=== PATIENT | female | born 1985 ===

== ENCOUNTER → 2020-12-18 13:21 | Outpatient (BNVA) | payer OTHER, SELFPAY | PROVIDERS: PCP Internal Medicine; Referring Provider Internal Medicine; Visit Provider Physician Assistant ==

== ENCOUNTER → 2020-12-24 07:34 | Outpatient (BNVA) | payer OTHER, SELFPAY | PROVIDERS: PCP Internal Medicine; Visit Provider Surgery ==

== ENCOUNTER 2020-12-30 | Outpatient (REF) | payer OTHER, SELFPAY ==
--- NOTE | ~2020-12-30 | XR_ITS ---
EXAMINATION: XR CHEST CLINICAL INFORMATION: Obesity COMPARISON: None TECHNIQUE: 2 views of the chest were obtained. FINDINGS: No significant abnormality is noted involving the heart, lungs, mediastinum, bony thorax or soft tissues. XR/XR chest 2V IMPRESSION: Unremarkable examination.
--- NOTE | 2020-12-30 08:34 | ECG_ITS ---
Test Reason : MOR OBS Blood Pressure : / mmHG Vent. Rate : 072 BPM Atrial Rate : 072 BPM P-R Int : 124 ms QRS Dur : 088 ms QT Int : 410 ms P-R-T Axes : 020 -03 -12 degrees QTc Int : 448 ms Normal sinus rhythm Normal ECG No previous ECGs available Referred By: Alonso Dooley Electronically Signed By:Carlos A Andrew
[2020-12-30 09:44] LABS: MANUAL DIFF FLAG NO
[2020-12-30 10:08] LABS: Basophils Percent Auto 0.4 % (0-2); Eosinophils Absolute Auto 0.2 X10*3/uL (0.0-0.4); Eosinophils Percent Auto 3.9 % (0-4); Hematocrit 40.1 % (37-47); Hemoglobin 13.2 g/dl (12.0-16.0); Lymphocytes Absolute Auto 1.8 X10*3/uL (1.2-4.9); Lymphocytes Percent Auto 35.6 % (20-40); Mean Corpuscular HGB Conc 32.9 g/dl (31.0-35.0); Mean Corpuscular Hemoglobin 26.7 pg (27.0-33.0); Mean Corpuscular Volume 81.2 fL (80-98); Monocytes Absolute Auto 0.4 X10*3/uL (0.1-1.2); Monocytes Percent Auto 8.3 % (2-11); Neutrophils Absolute Auto 2.6 X10*3/uL (2.0-8.3); Neutrophils Percent Auto 51.8 % (45-73); Platelet Count 194 X10*3/uL (160-400); Red Blood Count 4.94 X10*6/uL (4.20-5.50); Red Cell Distribution Width 12.7 % (11.0-16.0); White Blood Count 5.1 X10*3/uL (4.8-10.8)
[2020-12-30 10:15] LABS: Estimated Average Glucose 111 mg/dL; Hemoglobin A1c % 5.5 %
[2020-12-30 10:23] LABS: Alanine Aminotransferase 20 U/L (0-31); Albumin Level 4.1 g/dL (3.5-5.0); Alkaline Phosphatase 66 U/L (39-117); Anion Gap 14 (12-20); Aspartate Amino Transferase 24 U/L (5-31); Bilirubin Total 0.5 mg/dL (0.0-1.0); Blood Urea Nitrogen 16 mg/dL (9-16); C Reactive Protein 0.36 mg/dL (< or = 0.50); Calcium 9.4 mg/dL (8.4-10.2); Carbon Dioxide 26 mmol/L (22-29); Chloride 103 mmol/L (96-108); Cholesterol 162 mg/dL; Estimated Glomerular Filt Rate > 60; Glucose Random 99 mg/dL (60-115); HDL Cholesterol 47 mg/dL; Iron 76 mcg/dL (30-160); LDL Cholesterol Calculated 95 mg/dl; Percent Iron Saturation 20 % (15-50); Potassium 4.1 mmol/L (3.3-5.1); Sodium 139 mmol/L (135-145); Total Iron Binding Capacity 387 mcg/dL (228-428); Total Protein 7.1 g/dL (6.5-8.0); Triglycerides 104 mg/dL; Unsaturated Iron Binding 311 ug/dL
[2020-12-30 10:45] LABS: Ferritin 21 ng/mL (10-122); TSH reflex Free T4 1.74 uIU/mL (0.32-4.0); Vitamin D 25-OH Total 29.7 ng/mL (>30)
[2020-12-30 11:05] LABS: Folate 15.3 ng/mL (> or = 4.0); Vitamin B12 745 pg/mL (200-900)
[2020-12-31 09:41] LABS: Insulin Level Total 10.3 uIU/mL
[2020-12-31 13:51] LABS: Calcium (PTHI) 9.2 mg/dL (8.6-10.2); PTHI 48 pg/mL (14-64)
[2021-01-02 15:47] LABS: Zinc 71 mcg/dL (60-130)
[2021-01-04 12:17] LABS: Vitamin B1 7 nmol/L (8-30)
[2021-01-05 19:05] LABS: Vitamin A 42 mcg/dL (38-98)
[2021-02-17 15:31] VITALS: BMI 42.6
--- NOTE | 2021-02-20 08:59 | P.CONAN_ITS ---
HPI - Anesthesia Eval Consult details Narrative: 36yo F for ?Upper Endoscopy s/p gastric sleeve - [facility] Active Problems Active Problems: All Active Problems (Updated 01/14/21 @ 20:00 by Alonso sánchez MD) Vitamin B1 deficiency (Acute) H. pylori infection (Acute) Adjustment disorder, unspecified (Acute) Morbid obesity (Acute) Past Medical History Medical History (Updated 01/14/21 @ 20:00 by Alonso Dooley MD) Morbid obesity Family History Family History Mother No problems noted. Father Diabetes Sister No problems noted. Sister No problems noted. Sister No problems noted. Brother No problems noted. Son No problems noted. Son No problems noted. Daughter No problems noted. Surgical History Surgical History (Updated 12/24/20 @ 07:45 by Ha White Arnav) History of sleeve gastrectomy Social History Social History Alcohol intake: never Patient Tobacco Use Status: Never used Tobacco Meds Allergies Allergy/AdvReac Type Severity Reaction Status Date / Time Seasonal Allergies Allergy Severe Anaphylaxis Verified 12/24/20 13:50 Exam Exam Date and Time: February 20, 2021 0859 Height,Weight and Vital Signs: Height 5 ft 4.5 in Weight 114.419 kg Pertinent Lab Results Pertinent Lab Results: Laboratory Tests 12/30/20 12/30/20 12/30/20 08:52 08:52 08:52 WBC 5.1 RBC 4.94 Hgb 13.2 Hct 40.1 MCV 81.2 MCH 26.7 L MCHC 32.9 RDW 12.7 Plt Count 194 MPV 12.0 Immature Gran % (Auto) 0.0 Neut % (Auto) 51.8 Lymph % (Auto) 35.6 [place] % (Auto) 8.3 Eos % (Auto) 3.9 Baso % (Auto) 0.4 Lymph # (Auto) 1.8 [place] # (Auto) 0.4 Eos # (Auto) 0.2 Baso # (Auto) 0.0 Abs Immat Gran (auto) 0.00 Absolute Neuts (auto) 2.6 Absolute Nucleated RBC 0.000 Nucleated RBC % (auto) 0.0 Sodium 139 Potassium 4.1 Chloride 103 Carbon Dioxide 26 Anion Gap 14 BUN 16 Creatinine 0.88 Estim Creat Clear Calc TNP Estimated GFR > 60 Random Glucose 99 Estimat Average Glucose 111 Hemoglobin A1c % 5.5 Total Insulin Calcium 9.4 Iron 76 TIBC 387 % Saturation 20 Unsat Iron Binding 311 Ferritin 21 Total Bilirubin 0.5 AST 24 ALT 20 Alkaline Phosphatase 66 C-Reactive Protein 0.36 Total Protein 7.1 Albumin 4.1 Triglycerides 104 Cholesterol 162 LDL Cholesterol, Calc 95 HDL Cholesterol 47 Vitamin A Vitamin B1 Vitamin B12 25-OH Vitamin D Total 29.7 Folate TSH 1.74 PTH Intact Calcium (PTH Intact) Zinc 12/30/20 12/30/20 12/30/20 08:52 08:52 08:52 WBC RBC Hgb Hct MCV MCH MCHC RDW Plt Count MPV Immature Gran % (Auto) Neut % (Auto) Lymph % (Auto) [place] % (Auto) Eos % (Auto) Baso % (Auto) Lymph # (Auto) [place] # (Auto) Eos # (Auto) Baso # (Auto) Abs Immat Gran (auto) Absolute Neuts (auto) Absolute Nucleated RBC Nucleated RBC % (auto) Sodium Potassium Chloride Carbon Dioxide Anion Gap BUN Creatinine Estim Creat Clear Calc Estimated GFR Random Glucose Estimat Average Glucose Hemoglobin A1c % Total Insulin 10.3 Calcium Iron TIBC % Saturation Unsat Iron Binding Ferritin Total Bilirubin AST ALT Alkaline Phosphatase C-Reactive Protein Total Protein Albumin Triglycerides Cholesterol LDL Cholesterol, Calc HDL Cholesterol Vitamin A 42 Vitamin B1 7 L Vitamin B12 745 25-OH Vitamin D Total Folate 15.3 TSH PTH Intact 48 Calcium (PTH Intact) 9.2 Zinc 12/30/20 08:52 WBC RBC Hgb Hct MCV MCH MCHC RDW Plt Count MPV Immature Gran % (Auto) Neut % (Auto) Lymph % (Auto) [place] % (Auto) Eos % (Auto) Baso % (Auto) Lymph # (Auto) [place] # (Auto) Eos # (Auto) Baso # (Auto) Abs Immat Gran (auto) Absolute Neuts (auto) Absolute Nucleated RBC Nucleated RBC % (auto) Sodium Potassium Chloride Carbon Dioxide Anion Gap BUN Creatinine Estim Creat Clear Calc Estimated GFR Random Glucose Estimat Average Glucose Hemoglobin A1c % Total Insulin Calcium Iron TIBC % Saturation Unsat Iron Binding Ferritin Total Bilirubin AST ALT Alkaline Phosphatase C-Reactive Protein Total Protein Albumin Triglycerides Cholesterol LDL Cholesterol, Calc HDL Cholesterol Vitamin A Vitamin B1 Vitamin B12 25-OH Vitamin D Total Folate TSH PTH Intact Calcium (PTH Intact) Zinc 71 Narrative Narrative: EKG 12/2020 Vent. Rate : 072 BPM ? ? Atrial Rate : 072 BPM ?? P-R Int : 124 ms? QRS Dur : 088 ms ? ? QT Int : 410 ms ? ? ? P-R-T Axes : 020 -03 -12 degrees ?? QTc Int : 448 ms ? Normal sinus rhythm Normal ECG No previous ECGs available Assessment and Plan Assessment Anesthesia Assessment: Chart Reviewed
== END 2020-12-30 00:01 | disposition home or self-care (01) ==
LOC: HO.LAB
PROVIDERS: PCP Internal Medicine; Visit Provider Surgery
DX: E66.01 Morbid (severe) obesity due to excess calories (principal); Z98.84 Bariatric surgery status
CPT/HCPCS: 36415; 80053; 80061; 82306; 82607; 82728; 82746; 83036; 83525; 83540; 83970; 84425; 84443; 84590; 84630; 85025; 86140

== ENCOUNTER 2020-12-30 09:10 | Outpatient (REF) | payer OTHER, SELFPAY ==
[2020-12-31 13:51] LABS: H Pylori Breath Test DETECTED (NOT DETECTED)
== END 2020-12-30 09:11 | disposition home or self-care (01) ==
LOC: HO.LNP 09:10
PROVIDERS: Surgery; PCP Internal Medicine; Referring Provider Internal Medicine; Visit Provider Physician Assistant
DX: E66.01 Morbid (severe) obesity due to excess calories (principal)
CPT/HCPCS: 71046; 83013; 93005

== ENCOUNTER → 2021-01-16 07:04 | Outpatient (BNVA) | payer OTHER, SELFPAY | PROVIDERS: PCP Internal Medicine; Visit Provider Surgery ==

== ENCOUNTER → 2021-01-23 08:32 | Outpatient (BNVA) | payer OTHER, SELFPAY | PROVIDERS: PCP Internal Medicine; Visit Provider Dietitian, Registered ==

== ENCOUNTER 2022-03-01 16:04 | Outpatient (REF) | payer OTHER, SELFPAY ==
[2022-03-02 14:11] LABS: H Pylori Breath Test Negative (Negative)
== END 2022-03-01 16:05 | disposition home or self-care (01) ==
LOC: HO.LNP 16:04
PROVIDERS: Visit Provider Physician Assistant
DX: Z01.818 Encounter for other preprocedural examination (principal); E66.01 Morbid (severe) obesity due to excess calories; Z90.3 Acquired absence of stomach [part of]
CPT/HCPCS: 83013

== ENCOUNTER 2022-03-13 07:17 | Outpatient (REF) | payer OTHER, SELFPAY ==
[2022-03-13 07:46] LABS: MANUAL DIFF FLAG NO
[2022-03-13 08:03] LABS: Basophils Percent Auto 0.5 % (0-2); Eosinophils Absolute Auto 0.7 X10*3/uL (0.0-0.4); Eosinophils Percent Auto 11.2 % (0-4); Hematocrit 40.3 % (37.0-47.0); Hemoglobin 13.3 g/dl (12.0-16.0); Imm Gran Abs Auto 0.01 X10*3/uL (0.00-0.03); Imm Gran Pct Auto 0.2 % (0.0-0.4); Lymphocytes Absolute Auto 1.9 X10*3/uL (1.2-4.9); Lymphocytes Percent Auto 29.6 % (20-40); Mean Corpuscular Hemoglobin 26.4 pg (27.0-33.0); Mean Platelet Volume 12.1 fL (9.4-12.3); Monocytes Absolute Auto 0.5 X10*3/uL (0.1-1.2); Neutrophils Absolute Auto 3.4 x10*3/uL (2.0-8.3); Neutrophils Percent Auto 51.5 % (45-73); Platelet Count 199 X10*3/uL (160-400); Red Blood Count 5.04 X10*6/uL (4.20-5.50); Red Cell Distribution Width 13.2 % (11.0-16.0); White Blood Count 6.5 X10*3/uL (4.8-10.8)
[2022-03-13 08:06] LABS: Estimated Average Glucose 117 mg/dL; Hemoglobin A1c % 5.7 %
[2022-03-13 08:41] LABS: Alanine Aminotransferase 33 U/L (0-31); Albumin Level 4.1 g/dL (3.5-5.0); Alkaline Phosphatase 57 U/L (39-117); Anion Gap 15 (12-20); Aspartate Amino Transferase 31 U/L (5-31); Bilirubin Total 0.3 mg/dL (0.0-1.0); Blood Urea Nitrogen 14 mg/dL (9-16); Calcium 8.8 mg/dL (8.4-10.2); Carbon Dioxide 23 mmol/L (22-29); Chloride 105 mmol/L (96-108); Cholesterol 151 mg/dL; Estimated Glomerular Filt Rate > 60; Glucose Random 112 mg/dL (60-115); HDL Cholesterol 37 mg/dL; LDL Cholesterol Calculated 94 mg/dl; Potassium 3.8 mmol/L (3.3-5.1); Sodium 139 mmol/L (135-145); Total Protein 6.9 g/dL (6.5-8.0); Triglycerides 104 mg/dL
[2022-03-13 08:52] LABS: C Reactive Protein 0.24 mg/dL (< or = 0.50); Iron 73 mcg/dL (30-160); Percent Iron Saturation 20 % (15-50); Total Iron Binding Capacity 359 mcg/dL (228-428); Unsaturated Iron Binding 286 ug/dL
[2022-03-13 10:05] LABS: Ferritin 32 ng/mL (10-122); TSH reflex Free T4 1.85 uIU/mL (0.32-4.0); Vitamin D 25-OH Total 28.3 ng/mL (>30)
[2022-03-13 11:06] LABS: Insulin 14 uU/mL (2-29)
[2022-03-15 05:48] LABS: Folate 12.1 ng/mL (> or = 4.0); Vitamin B12 713 pg/mL (200-900)
[2022-03-15 17:26] LABS: Calcium (PTHI) 8.9 mg/dL (8.6-10.2); PTHI 91 pg/mL (16-77)
[2022-03-16 23:47] LABS: Zinc 85 mcg/dL (60-130)
[2022-03-17 15:07] LABS: Vitamin B1 8 nmol/L (8-30)
[2022-03-17 20:32] LABS: Vitamin A 38 mcg/dL (38-98)
== END 2022-03-13 07:18 | disposition home or self-care (01) ==
LOC: HO.XRAY 07:17
PROVIDERS: Visit Provider Physician Assistant
DX: Z01.818 Encounter for other preprocedural examination (principal); E66.01 Morbid (severe) obesity due to excess calories; Z90.3 Acquired absence of stomach [part of]
CPT/HCPCS: 36415; 80053; 80061; 82306; 82607; 82728; 82746; 83036; 83525; 83540; 83970; 84425; 84443; 84590; 84630; 85025; 86140

== ENCOUNTER → 2022-03-24 09:54 | Outpatient (BNVA) | payer OTHER, SELFPAY | PROVIDERS: PCP Physician Assistant Medical; Visit Provider Dietitian, Registered | DX: E66.01 Morbid (severe) obesity due to excess calories (principal) | CPT/HCPCS: 97802 ==

== ENCOUNTER → 2022-03-30 10:00 | Outpatient (BNVA) | payer OTHER, SELFPAY | PROVIDERS: PCP Physician Assistant Medical; Visit Provider Counselor Mental Health | DX: F43.20 Adjustment disorder, unspecified (principal); E66.01 Morbid (severe) obesity due to excess calories | CPT/HCPCS: 90791 ==

== ENCOUNTER 2022-04-19 08:19 | Outpatient (REF) | payer OTHER, SELFPAY ==
--- NOTE | ~2022-04-19 | FL_ITS ---
EXAMINATION: XR FLUOROSCOPY UPPER GI CLINICAL INFORMATION: Morbid (severe) obesity due to excess calories COMPARISON: None TECHNIQUE: Effervescent granules were not utilized because of the patient's history of prior sleeve gastrectomy. Multiple fluoroscopic spot images were obtained as the patient swallowed thick and thin barium in upright and prone positions. FINDINGS: The patient initiated swallowing normally. The cervical esophagus is normal. Normal esophageal peristalsis. No fixed esophageal mucosal abnormality to suggest stricture or mass. No hiatal hernia. No reflux seen spontaneously or elicited with Valsalva maneuver. Expected postoperative appearance of the stomach status post sleeve gastrectomy. There is prompt emptying of the stomach with normal appearance and distensibility of the duodenal bulb and sweep. FLUOROSCOPY TIME: 2.5 minutes DOSE AREA PRODUCT: 43.503 Gy-cm2 (cai-centimeter squared) FL/FL upper GI w air IMPRESSION: Expected postoperative appearance status post sleeve gastrectomy.
--- NOTE | ~2022-04-19 | US_ITS ---
EXAMINATION: US COMPLETE ABDOMEN WITH LIVER ELASTOGRAPHY CLINICAL INFORMATION: Obesity COMPARISON: None. TECHNIQUE: Real-time imaging of the abdominal viscera. Noninvasive ultrasound liver fibrosis assessment is performed using Tricia ElastPQ point quantification shear wave elastography (2D-SWE) with a C5-2 MHz transducer. Multiple elastography samples are obtained. FINDINGS: PANCREAS: Normal. ABDOMINAL AORTA: The proximal, middle, and distal aortic segments are normal in caliber. INFERIOR VENA CAVA: Visualized portions are normal. LIVER: Liver echotexture is increased. The liver demonstrates normal size, and contour. No focal lesion or intrahepatic biliary duct dilatation. The right lobe measures 14.6 cm in length. The left lobe measures 9.7 cm in length. Portal flow is normal/hepatopedal Shear wave liver elastography median stiffness is 1.6 m/s (reference: normal median stiffness is 1.3 m/s or less). IQR/median stiffness to assess sampling precision is 0.09 (reference: good quality data set is IQR/median stiffness of 0.15 or less). GALLBLADDER: Normal. The gallbladder is physiologically distended without evidence of stones, sludge, polyps, wall thickening or pericholecystic fluid. COMMON BILE DUCT: Normal in caliber measuring 0.2 cm in diameter. RIGHT KIDNEY: Normal. No hydronephrosis. No renal calculi or focal parenchymal lesions. The kidney measures 11.6 cm in maximum dimension. LEFT KIDNEY: Normal. No hydronephrosis. No renal calculi or focal parenchymal lesions. The kidney measures 12.6 cm in maximum dimension. SPLEEN: Normal. The spleen measures 11.2 cm in maximum dimension. FREE FLUID: None. US/US abdomen comp w elastography IMPRESSION: 1. Impression: Echogenic liver probably representing fatty infiltration. 2. Liver elastography: Adequate liver sampling. In the absence of other known clinical signs, rules out compensated advanced chronic liver disease. REFERENCE: Society of Radiologists in Ultrasound Liver Stiffness Thresholds (2020): LIVER STIFFNESS THRESHOLDS: *Liver Stiffness equal or less than 1.3 m/s: High probability of being normal. *Liver Stiffness less than 1.7 m/s: In the absence of other known clinical signs, rules out compensated advanced chronic liver disease. *Liver Stiffness 1.7-2.1 m/s: Suggestive of compensated advanced chronic liver disease but need further test for confirmation. *Liver Stiffness over 2.1 m/s: Rules in compensated advanced chronic liver disease. *Liver Stiffness over 2.4 m/s: Suggestive of clinically significant portal hypertension. QUALITY OF DATA SET: *IQR/Median value equal or less than 0.15 implies a quality data set. *IQR/Median value over 0.15 implies a poor quality data set. SIGNIFICANT CHANGE FROM PRIOR EXAM: Significant change if liver stiffness measurement is 10% or greater from prior exam. OTHER CONSIDERATIONS: The stage of liver fibrosis may be overestimated in the setting of acute hepatitis, liver inflammation, elevated liver function tests, hepatic vascular congestion, obstructive cholestasis, non-fasting state, and infiltrative diseases such as amyloidosis and lymphoma. In some patients with NAFLD, the liver stiffness thresholds for compensated advanced chronic liver disease may be lower. In causes other than viral hepatitis and NAFLD, liver stiffness thresholds are not well established.
== END 2022-04-19 08:20 | disposition home or self-care (01) ==
LOC: HO.US 08:19
PROVIDERS: Visit Provider Physician Assistant
DX: Z01.818 Encounter for other preprocedural examination (principal); E66.01 Morbid (severe) obesity due to excess calories; K21.9 Gastro-esophageal reflux disease without esophagitis; Z90.3 Acquired absence of stomach [part of]
CPT/HCPCS: 74246; 76705; 76981

== ENCOUNTER → 2022-04-29 10:11 | Outpatient (BNVA) | payer OTHER, SELFPAY | PROVIDERS: PCP Physician Assistant Medical; Visit Provider Dietitian, Registered | DX: E66.01 Morbid (severe) obesity due to excess calories (principal) | CPT/HCPCS: 97803 ==

== ENCOUNTER → 2022-06-25 09:30 | Outpatient (BNVA) | payer OTHER, SELFPAY | PROVIDERS: PCP Physician Assistant Medical; Visit Provider Physician Assistant | DX: E66.01 Morbid (severe) obesity due to excess calories (principal) ==

== ENCOUNTER → 2022-07-06 07:59 | Outpatient (REF) | payer OTHER, SELFPAY ==
--- NOTE | ~2022-07-06 | XR_ITS ---
EXAMINATION: XR chest 2V CLINICAL INFORMATION: Reason for Exam E66.01 - Morbid (severe) obesity due to excess calories COMPARISON: 12/30/2020 TECHNIQUE: 2 views of the chest FINDINGS: Clear lungs. No pneumothorax or pleural effusion. Normal cardiomediastinal silhouette. XR/XR chest 2V Impression: * Clear lungs.
--- NOTE | 2022-07-06 08:05 | ECG_ITS ---
Test Reason : obesity Blood Pressure : / mmHG Vent. Rate : 071 BPM Atrial Rate : 071 BPM P-R Int : 142 ms QRS Dur : 090 ms QT Int : 416 ms P-R-T Axes : 009 -02 -07 degrees QTc Int : 452 ms Normal sinus rhythm Minimal voltage criteria for LVH, may be normal variant ( [place] product ) Septal infarct , age undetermined Abnormal ECG When compared with ECG of 30-DEC-2020 08:40, Septal infarct is now Present Referred By: Beronica Lucio Electronically Signed By:BASIA LIRA MD
== END ==
LOC: HO.CARD 07:59
PROVIDERS: PCP Physician Assistant Medical; Visit Provider Physician Assistant
DX: Z01.818 Encounter for other preprocedural examination (principal); E66.01 Morbid (severe) obesity due to excess calories; Z90.3 Acquired absence of stomach [part of]
CPT/HCPCS: 71046; 93005

== ENCOUNTER → 2022-07-09 11:22 | Outpatient (BNVA) | payer OTHER, SELFPAY | PROVIDERS: PCP Physician Assistant Medical; Visit Provider Physician Assistant | DX: E66.01 Morbid (severe) obesity due to excess calories (principal) ==

== ENCOUNTER → 2022-07-16 10:23 | Outpatient (REF) | payer OTHER, SELFPAY ==
--- NOTE | 2022-07-16 10:26 | CA_ITS ---
Transthoracic Echocardiogram Patient (Last, First, Middle): Roseline Rock, Gender: Female Date of : 1985 Age: 37 Procedure Date: 07/16/2022 Procedure Type: Transthoracic Echocardiogram Location: OP Height: 162.56 cm Weight: 113.85 kg BSA: 2.15 m2 Heart Rate: bpm BP: 124 / 80 mmHg System Trainer: CLARISSE Referring MD: Beronica Lucio PA-C Symptoms: R94.31 - Abnormal electrocardiogram [ECG] [EKG] R06.02 SOB Study Quality: Fair w CONTRAST ECG Rhythm: Sinus Conclusions: - The left ventricular systolic function is normal. The calculated ejection fraction is 57% by biplane method. - No obvious valvular pathology seen on this study. Findings Left Ventricle Normal left ventricular cavity size. There is normal left ventricular wall thickness. The left ventricular systolic function is normal. The calculated ejection fraction is 57% by biplane method. There is no evidence of regional wall motion abnormalities. Diastolic function is normal for age. Right Ventricle Normal right ventricular cavity size and systolic function. Atria The left atrium is normal in size. The right atrium is normal in size. Aortic Valve The aortic valve was not well visualized. There is no aortic valve stenosis. There is no aortic valve regurgitation. Mitral Valve The mitral valve appears normal. There is trace mitral valve regurgitation. There is no mitral valve stenosis. Pulmonic Valve The pulmonic valve is likely normal. Tricuspid Valve Normal tricuspid valve structure. There is trace tricuspid valve regurgitation. There is no evidence of pulmonary hypertension. Great Vessels The asc aorta is normal in size. Venous The inferior vena cava is normal in size and collapses greater than 50% with inspiration. Pericardium/Pleural There is no evidence of pericardial effusion. Prior Study Comparison No prior study available for comparison. Recommendations, Care & Conclusions No obvious valvular pathology seen on this study. Measurements 2D Linear Measurements IVSd: 0.93 0.6-0.9/0.6-1.0 cm LVIDd: 5.43 3.9-5.3/4.2-5.9 cm LVIDd Index: 2.53 2.4-3.2/2.2-3.1 cm/m2 LVIDs: 3.38 2.0-3.6 cm LVPWd: 0.88 0.7-1.1 cm Ao Root: 2.60 2.1-3.5 cm LA Diam: 4.00 2.7-3.8/3.0-4.0 cm LAIDs Index: 1.86 1.5-2.3 cm/m2 LV Mass: 227.52 67-162/88-224 g LV Mass Index: 105.82 43-95/49-115 g/m2 LVOT Diam: 2.20 3.0+(-)1.3 cm 2D Systolic Function EF 4C: 59.70 >55% EF 2C: 56.50 >55% EF BiP: 57.00 >55% Mitral Valve MV Pk E: 0.95 MV PK A: 0.73 MV Decel Time: 227.00 E/A: 1.30 E'Lateral: 14.60 E'Medial: 10.10 E/E' Med: 9.40 E/E' Lat: 6.50 PHT: 66.00 MVA PHT: 3.33 Decel Brooke: 4.18 Aortic Valve AoV Pk Hunter: 1.55 AoV Mn Hunter: 1.06 AoV VTI: 0.39 AoV Pk Grad: 10.00 Aov Mn Grad: 5.00 PRAVEEN Cont.VTI: 2.61 LVOT LVOT Pk Hunter: 1.03 LVOT Mn Hunter: 0.71 LVOT VTI: 0.27 LVOT Pk Grad: 4.00 LVOT Mn Grad: 2.00 LVOT Diam: 2.20 LVOT Area: 3.80 Diastolic Function MV Pk E: 0.95 MV Pk A: 0.73 E/A: 1.30 E'Medial: 10.10 E/E' Med: 9.40 E' Laterial: 14.60 E/E' Lat: 6.50 Right Ventricle TAPSE (mm): 25.00 Tricuspid Valve TR Pk Hunter: 2.28 TR Pk Grad: 21.00 RA Press: 3.00 RVSP: 24.00 Great Vessels Aorta Ao Root-2D: 2.60 2.0-3.7 cm Ao Asc: 2.60 2.1-3.4 cm Pulmonary Valve PV Pk Hunter: 1.03 Peak PV Grad: 4.00 Updated in Other Vendor System with Status of Final Rom Escamilla MD electronically signed on 07/17/2022 12:43:35 PM with status of Final
== END ==
LOC: HO.CARD 10:23
PROVIDERS: PCP Physician Assistant Medical; Visit Provider Physician Assistant
DX: Z01.818 Encounter for other preprocedural examination (principal); E66.01 Morbid (severe) obesity due to excess calories; R94.31 Abnormal electrocardiogram [ECG] [EKG]
CPT/HCPCS: 93306; Q9957

== ENCOUNTER → 2022-07-20 09:21 | Outpatient (REF) | payer OTHER, SELFPAY ==
--- NOTE | ~2022-07-20 | NM_ITS ---
Exercise Myocardial perfusion study Indication: Abnormal EKG to evaluate for myocardial ischemia Technique: The patient was brought in for an exercise perfusion study on 07/20/2022. Patient performed exercise as per Bradford protocol and was injected 40 mCi of sestamibi was given intravenously one target HR was achieved. Images were obtained using the SPECT gamma camera interlaced with the gating device. Images were obtained in supine position. Resting perfusion study was performed on 08/05/2022. Patient was administered 40 mCi of sestamibi intravenously at rest. Images were then obtained in supine position. Images obtained with and without CT attenuation. Total DLP 156 mGy-cm. Images were processed with the software and compared side to side in short axis, horizontal long axis and vertical long axis views. Findings: The stress perfusion study showed non attenuated images show minimal thinning and reduced uptake in the distal anterolateral and distal anterior as well as basal and mid anterior wall of the LV myocardium. Attenuation corrected images show mildly reduced uptake in the basal and mid anterior and moderately reduced uptake in the distal anterior, distal septum and mildly reduced uptake in the septum of the LV myocardium.. The gated study shows normal LV systolic function with calculated LVEF of 64%. LV cavity is normal in size. The gated study shows normal systolic wall thickening and contraction of all segments. There is no transient ischemic dilation. Resting study shows non attenuated images show improvement in the uptake in the inferior and inferoseptal wall as well as on attenuated corrected images there is improvement in the distal septum, distal anterior and anteroseptal wall of the LV myocardium as well as the apex. Gating at rest reveals normal systolic wall motion with ejection fraction at 59%. The findings are consistent with equivocal for septal and distal anterior ischemia. Shifting breast attenuation cannot be. NM/NM cardiolite stress test Impression: 1. Possible septal and distal anterior ischemia 2. Gated LVEF is 64% 3. Transient ischemic dilatation not present Stress EKG is negative for ischemia
--- NOTE | 2022-07-20 09:23 | CA_ITS ---
Acquisition Time: 2022-07-20 10:09:09 Total Exercise Time: 00:08:58 Test Indications: SOB Medications: NONE Protocol: JIM Max HR: 160 BPM 87% of Pred: 183 BPM Max BP: 140/070 mmHG Max Work Load: 10.1 METS Exercise stress test with exercise 8 min 58 sec of Jim protocol achieving 85% MPHR, 10.1 METs, without anginal symptoms, without arrythmia, with normtensive response to exercise, without EKG changes meeting criteria for ischemia. Nuclear images pending. Test reviewed with Dr Andrew. Referred By: Beronica Lucio Overread By: ALEX SELLERS
== END ==
LOC: HO.CARD 09:21
PROVIDERS: PCP Physician Assistant Medical; Visit Provider Physician Assistant
DX: Z01.818 Encounter for other preprocedural examination (principal); E66.01 Morbid (severe) obesity due to excess calories; R94.31 Abnormal electrocardiogram [ECG] [EKG]
CPT/HCPCS: 78452; 93017; A9500

== ENCOUNTER → 2022-07-29 11:00 | Outpatient (BNVA) | payer OTHER, SELFPAY | PROVIDERS: PCP Physician Assistant Medical; Visit Provider Physician Assistant | DX: E66.01 Morbid (severe) obesity due to excess calories (principal); Z90.3 Acquired absence of stomach [part of]; R94.31 Abnormal electrocardiogram [ECG] [EKG] ==

== ENCOUNTER → 2022-08-17 14:15 | Outpatient (BNVA) | payer OTHER, MEDICAID, SELFPAY | PROVIDERS: PCP Physician Assistant Medical; Referring Provider Physician Assistant Medical; Visit Provider Internal Medicine | DX: Z13.89 Encounter for screening for other disorder (principal) ==

== ENCOUNTER → 2022-08-20 14:00 | Outpatient (BNVA) | payer OTHER, MEDICAID, SELFPAY | PROVIDERS: PCP Physician Assistant Medical; Visit Provider Physician Assistant | DX: Z13.89 Encounter for screening for other disorder (principal) ==

== ENCOUNTER → 2022-09-06 08:03 | Outpatient (BNVA) | payer OTHER, MEDICAID, SELFPAY | PROVIDERS: PCP Physician Assistant Medical; Visit Provider Surgery | DX: Z13.89 Encounter for screening for other disorder (principal) ==

== ENCOUNTER → 2022-09-13 11:06 | Outpatient (BNVA) | payer OTHER, MEDICAID, SELFPAY | PROVIDERS: PCP Physician Assistant Medical; Visit Provider Surgery | DX: Z13.89 Encounter for screening for other disorder (principal) ==

== ENCOUNTER 2022-09-14 07:20 | Outpatient (REF) | payer OTHER, MEDICAID, SELFPAY ==
[2022-09-14 07:33] LABS: MANUAL DIFF FLAG NO
[2022-09-14 08:06] LABS: Basophils Percent Auto 0.7 % (0-2); Eosinophils Absolute Auto 0.4 X10*3/uL (0.0-0.4); Hematocrit 38.6 % (37.0-47.0); Hemoglobin 12.4 g/dl (12.0-16.0); Imm Gran Abs Auto 0.01 X10*3/uL (0.00-0.03); Imm Gran Pct Auto 0.2 % (0.0-0.4); Lymphocytes Absolute Auto 2.1 X10*3/uL (1.2-4.9); Lymphocytes Percent Auto 33.5 % (20-40); Mean Corpuscular HGB Conc 32.1 g/dl (31.0-35.0); Mean Corpuscular Hemoglobin 26.4 pg (27.0-33.0); Mean Corpuscular Volume 82.1 fL (80.0-98.0); Mean Platelet Volume 12.7 fL (9.4-12.3); Monocytes Absolute Auto 0.5 X10*3/uL (0.1-1.2); Monocytes Percent Auto 7.6 % (2-11); Neutrophils Absolute Auto 3.1 x10*3/uL (2.0-8.3); Platelet Count 178 X10*3/uL (160-400); Red Cell Distribution Width 13.6 % (11.0-16.0); White Blood Count 6.2 X10*3/uL (4.8-10.8)
[2022-09-14 08:29] LABS: Prothrombin Time 11.2 SEC (10.0-13.1)
[2022-09-14 08:32] LABS: Partial Thromboplastin Time 28.3 SEC (26.0-36.4)
[2022-09-14 08:39] LABS: Estimated Average Glucose 111 mg/dL; Hemoglobin A1c % 5.5 %
[2022-09-14 09:45] LABS: Alanine Aminotransferase 15 U/L (0-31); Albumin Level 3.9 g/dL (3.5-5.0); Alkaline Phosphatase 54 U/L (39-117); Anion Gap 12 (12-20); Aspartate Amino Transferase 25 U/L (5-31); Bilirubin Total 0.4 mg/dL (0.0-1.0); Blood Urea Nitrogen 17 mg/dL (9-16); C Reactive Protein 0.14 mg/dL (< or = 0.50); Calcium 8.8 mg/dL (8.4-10.2); Carbon Dioxide 25 mmol/L (22-29); Chloride 109 mmol/L (96-108); Cholesterol 152 mg/dL; Estimated Glomerular Filt Rate > 60; Glucose Random 89 mg/dL (60-115); HDL Cholesterol 49 mg/dL; LDL Cholesterol Calculated 85 mg/dl; Sodium 142 mmol/L (135-145); Total Protein 6.4 g/dL (6.5-8.0); Triglycerides 92 mg/dL
[2022-09-14 09:50] LABS: Insulin 7 uU/mL (2-29); TSH reflex Free T4 3.17 uIU/mL (0.32-4.0)
== END 2022-09-14 07:21 | disposition home or self-care (01) ==
LOC: HO.LAB 07:20
PROVIDERS: PCP Physician Assistant Medical; Visit Provider Surgery
DX: E66.01 Morbid (severe) obesity due to excess calories (principal)
CPT/HCPCS: 36415; 80053; 80061; 83036; 83525; 84443; 85025; 85610; 85730; 86140

== ENCOUNTER → 2022-09-17 12:55 | Outpatient (BNVA) | payer OTHER, MEDICAID, SELFPAY | PROVIDERS: PCP Physician Assistant Medical; Visit Provider Surgery | DX: Z13.89 Encounter for screening for other disorder (principal) ==

== ENCOUNTER 2022-09-21 07:15 | Inpatient (IN) | payer OTHER, SELFPAY ==
[2022-09-16 11:28] VITALS: BMI 45.7
--- NOTE | 2022-09-17 17:26 | P.HPSUR_ITS ---
Pre-Procedural Eval Section A Date of Service: 09/17/22 The patient is an INPATIENT: Yes The History & Physical has been completed within 30 days and I have reviewed it.: Yes Section B Chief Complaint: Morbid (severe) obesity due to excess calories Relevant Family History (Specify if Yes): No Relevant Social History: None Present Medications: None Medical History: No relevant PMH History of Previous Operations: Relevant previous surgery/procedure and date(s) (laparoscopic sleeve gastrectomy) Allergies: Allergies Allergy/AdvReac Type Severity Reaction Status Date / Time Seasonal Allergies Allergy Severe Anaphylaxis Verified 09/13/22 13:39 Review of Systems Sugical H&P ROS: Negative: Constitution, Cardiovascular, Respiratory, Neurological, Psychiatric, Hem-Onc, Allergic/Immunologic, Gastrointestinal, Gen itourinary, Musculoskeletal, Integumentary, Endocrine and Eyes/Ears/Nose/Throat Exam Surgical H&P Exam: Normal: HEENT, Normal: Heart, Normal: Lungs, Normal: Extremities, Normal: Abdomen, Normal: Skin and Normal: Neurological Plan Diagnosis/Plan: Unchanged I have reviewed the history and physical and performed a pertinent physical examination on my patient. No changes have occurred unless specified. Time Spent With Patient Time: Total time managing care of this patient today ____ minutes.
[2022-09-20 12:57] LABS: COVID-19 Test Negative (Negative); IDNOW Serial# 55D5AD1C
[2022-09-21] VITALS (10 sets, daily range): BP systolic 117–148; BP diastolic 64–86; PULSE 61–75; RESP 11–169; TEMP 36.2–36.4; O2SAT 93–100
--- OUTSIDE RECORDS SUMMARY | 2022-09-21 07:18 | XMS_ITS | Continuity of Care Document ---
Author Name Unknown Organization [facility] ter Address [address] [place] [id number]- Care Team Providers Care Carbonation Equipment Tender Name Role Phone Christoph Case MD Primary Care Physician Encounter [facility] [place](s): 09/01/20 - 09/17/[address] [id number] Discharge Disposition: A-D/C Home Attending Physician: Amanda Weiss MD Admitting Physician: Amanda Weiss MD Referring Physician: Amanda Weiss MD Allergies, Adverse Reactions, Alerts Substance Reaction Severity Status Other Environmental Allergy 1 Active Avocado Active 1Seasonal allergies Immunizations Given and Recorded Vaccine Date Status Refusal Reason Influenza Virus Vaccine (oldterm) 04/27/20 Recorde d Medications aspirin 81 mg oral delayed release tablet 162 mg, 2, tablet, By Mouth, Daily, # 30 tablet, Refills 0, Maintenance, 08/23/20 8:21:00 EST, Partial fill upon patient request if the prescription is for a schedule II opioid drug. Start Date: 08/23/20 Status: Ordered Multivitamins with Folic Acid 1 mg oral tablet 1 tablet, By Mouth, Daily, # 90 tablet, 3 Refills, Maintenance, 03/07/20 16:36:00 EDT, [id number], 1 tablet By Mouth Daily,x90 days, 167, cm, 03/05/20 9:38:00 EDT, Height, 116.1, kg, 05/15/1912:13:00 EST, Dry Weight Start Date: 03/07/20 Stop Date: 03/02/21 Status: Ordered Problem List Condition Effective Dates Status Health Status Inform ant Back ache(Confirmed) Active Cervical incompetence(Confirmed) 1 12/12/17 Active Chest pain due to GERD(Confirmed) Active affected by growth restriction(Confirmed) Active Morbid obesity(Confirmed) Active Visit for preventive health examination(Confirmed) Active Polycystic ovarian syndrome(Confirmed) Active Sleep apnea(Confirmed) Active 1Problem added by Discern Expert Vital Signs Most recent to oldest [Reference Range]: 1 2 3 Height 163 cm (09/07/20 11:04 PM) 163 cm (09/01/20 4:35 AM) 163 cm (09/01/20 3:03 AM) Weight 114.7 kg (09/01/20 4:39 AM) 116.8 kg (09/01/20 4:35 AM) 114.4 kg (09/01/20 3:03 AM) Oxygen Saturation [94-100 %] 99 % (09/17/20 8:53 AM) 98 % (09/15/20 10:45 PM) 98 % (09/15/20 10:30 PM) Pulse Rate [55-90 bpm] 95 bpm *H* (09/15/20 9:11 AM) 78 bpm (09/15/20 6:36 AM) 79 bpm (09/14/20 8:33 AM) Body Mass Index [18.5-24.99] 43.96 *>HHI* (09/01/20 4:35 AM) 43.06 *>HHI* (09/01/20 3:03 AM) Blood Pressure [90-138/55-84 mm Hg] 122/67mm Hg (09/17/20 8:53 AM) 114/67mm Hg (09/17/20 6:42 AM) 123/68mm Hg (09/16/20 8:29 PM) Respiratory Rate [16-30 br/min] 18 br/min (09/17/20 8:53 AM) 18 br/min (09/16/20 6:18 PM) 18 br/min (09/16/20 8:50 AM) Temperature [96.8-100.4 DegF] 98 DegF (09/17/20 8:53 AM) 97.5 DegF (09/16/20 8:29 PM) 98.6 DegF (09/16/20 8:50 AM) Mode of Delivery (Oxygen) Room air (09/15/20 6:52 PM) Room air (09/15/20 3:49 PM) Room air (09/15/20 9:11 AM) Blood pressure sites Arm, right (09/15/20 6:52 PM) Arm, right (09/15/20 9:11 AM) Arm, left (09/14/20 10:49 PM) Temperature Route Oral (09/17/20 8:53 AM) Oral (09/16/20 8:29 PM) Oral (09/15/20 9:30 PM) Dry Weight 114.7 kg (09/01/20 4:39 AM) 116.8 kg (09/01/20 4:35 AM) Weight Obtained Via Standing scale (09/01/20 4:39 AM) Standing scale (09/01/20 3:03 AM) Dry Weight Obtained Via Standing scale (09/01/20 4:39 AM) Social History Social History Type Response Smoking Status Never smoker; Tobacc o user in household: No entered on: 10/23/14 Sex
--- OUTSIDE RECORDS SUMMARY | 2022-09-21 07:18 | XMS_ITS | Continuity of Care Document ---
Author Name Unknown Organization [facility] Address [address] [place] [id number]- Care Team Providers Care Nurses Assistant Name Role Phone Manpreet LOUIS, Christoph Morillo Primary Care Physician Encounter [facility] [place] Date(s): 10/29/20 - 11/28/[address] [id number]- Attending Physician: Bernard Bailey Admitting Physician: Bernard Bailey Referring Physician: Bernard Bailey Allergies, Adverse Reactions, Alerts Substance Reaction Severity [...] apnea(Confirmed) Active 1Problem added by Discern Expert Social History Social History Type Response Smoking Status Never smoker; Tobacc o user in household: No entered on: 10/23/14 Sex
--- OUTSIDE RECORDS SUMMARY | 2022-09-21 07:18 | XMS_ITS | Continuity of Care Document ---
Author Name Unknown Organization [facility] ter Address [address] [place] [phone]- Care Team Providers Care Brand Recorder Name Role Phone Manpreet LOUIS, Christoph Morillo Primary Care Physician Encounter [facility] Date(s): 04/26/20 - 04/26/[address] [address] Discharge Disposition: A-D/C Home Attending Physician: Gris Holman MD Admitting Physician: Gris Holman MD Referring Physician: Gris Holman MD Allergies, Adverse Reactions, Alerts Substance Reaction Severity Status Other Environmental Allergy 1 Active Avocado Active 1Seasonal allergies Medications 27 g 1/2 inch needle 27 g 1/2 inch needle, See Instructions, # 20 each, Refills 1, Tot. Refills 1, Maintenance, To use to adminsiter Menopur, 03/17/20 13:58:00 EDT, Compound, 167, cm, 03/05/20 9:38:00 EDT, Height, 116.1,kg, 05/15/19 12:13:00 EST, Dry Weight Start Date: 03/17/20 Status: Ordered 3 ml syringe with 22 g x 11/2 inch needle 3 ml syringe with 22 g x 11/2 inch needle, See Instructions, # 30 each, Refills 5, Tot. Refills 5, Maintenance, To use to mix & draw up Menopur., 03/17/20 13:57:00 EDT, Compound, 167, cm, 03/05/20 9:38:00 EDT, Height, 116.1, kg, 05/15/19 12:13:00 EST,... Start Date: 03/17/20 Status: Ordered albuterol 0.083% inhalation solution 3 mL = 2.5 mg, Inhalation, Every 6 hours, PRN Wheezing/Shortness of Breath, 0 Refills, Maintenance Start Date: 03/30/13 Status: Ordered Apri 0.15 mg-0.03 mg oral tablet 1 tablet, By Mouth, Daily, starting on the first day of the menstrual cycle, # 42 tablet, 3 Refills, Maintenance, 03/07/20 16:35:00 EDT, Tablet, [facility]/pharmacy #[id number], 1 tablet By Mouth Daily,x21 days,Instr:starting on the first day of the menstrual cycl... Start Date: 03/07/20 Stop Date: 05/30/20 Status: Ordered Claritin 24 Hour Allergy 10 mg oral tablet 1 tablet = 10 mg, By Mouth, Daily, as needed for allergies, 0 Refills, Maintenance, 03/05/20 9:36:00 EDT, Tablet Start Date: 03/05/20 Status: Ordered doxycycline hyclate 100 mg oral tablet 1 tablet = 100 mg, By Mouth, 2 times a day, # 28 tablet, 5 Refills, Maintenance, 03/17/20 13:57:00 EDT, [facility], 167, cm, 03/05/20 9:38:00 EDT, Height, 116.1, kg, 05/15/19 12:13:00EST, Dry Weight Start Date: 03/17/20 Status: Ordered ganirelix 250 mcg/0.5 ml subcutaneous injection 0.5 mL = 250 mcg, Subcutaneous Injection, Daily, # 7 each, 5 Refills, Maintenance, 03/17/20 13:57:00 EDT, [facility], Needs meds by 04/10/2020, 167, cm, 03/05/20 9:38:00 EDT, Height, 116.1, kg, 05/15/19 12:13:00 EST, Dry Weight Start Date: 03/17/20 Status: Ordered Gonal-F 1050 units subcutaneous injection = 300 International_Units, Subcutaneous Injection, Daily, rotate injection sites, # 3 kit, 5 Refills, Maintenance, 03/17/20 13:57:00 EDT, [facility], 300 International_Units Subcutaneous Injection Daily,Instr:rotate injection sites, 16... Start Date: 03/17/20 Status: Ordered Menopur 75 intl units subcutaneous injection = 300 International_Units, Subcutaneous Injection, Daily, Take as separate injection from Gonal F.,# 40 each, 5 Refills, Maintenance, 03/17/20 13:57:00 EDT, [facility], 167, cm, 03/05/20 9:38:00 EDT, Height, 116.1, kg, 05/15/19 12:13:... Start Date: 03/17/20 Status: Ordered Ovidrel 250 mcg/0.5 mL subcutaneous solution See Instructions, Subcutaneous Injection. Take both when instructed by physician. One right after the other., # 2 each, 3 Refills, Maintenance, 03/17/20 13:58:00 EDT, [facility], 167,cm, 03/05/20 9:38:00 EDT, Height, 116.1, kg, ... Start Date: 03/17/20 Status: Ordered oxyCODONE 5 mg oral tablet 5 mg, 1, tablet, By Mouth, Every 6 hours, PRN, # 5 tablet, Refills 0, Tot. Refills 0, Maintenance, Pain , Severe, 04/21/20 12:41:00 EST, Route to Pharmacy Electronically, [facility]/pharmacy #[id number], Partial fill upon patient request, 167, cm, 03/05/20 9:38:00... Start Date: 04/21/20 Status: Ordered Multivitamins with Folic Acid 1 mg oral tablet 1 tablet, By Mouth, Daily, # 90 tablet, 3 Refills, Maintenance, 03/07/20 16:36:00 EDT, [facility]/pharmacy#[id number], 1 tablet By Mouth Daily,x90 days, 167, cm, 03/05/20 9:38:00 EDT, Height, 116.1, kg, 05/15/1912:13:00 EST, Dry Weight Start Date: 03/07/20 Stop Date: 03/02/21 Status: Ordered Prometrium 200 mg oral capsule See Instructions, 1 capsule per vagina three times a day beginning day after retrieval, # 90 capsule, 5 Refills, Maintenance, 03/17/20 13:58:00 EDT, [facility], 167, cm, 03/05/20 9:38:00 EDT, Height, 116.1, kg, 05/15/19 12:13:00 EST, D... Start Date: 03/17/20 Status: Ordered Valium 5 mg oral tablet 5 mg, 1, tablet, By Mouth, Once, 1 tab po 1hr before procedure take the other with you to the hospital. May repeat X 1., # 2 tablet, Refills 0, Tot. Refills 0, Soft Stop, 04/21/20 12:41:00 EST, [facility], [facility]/pharmacy #[id number], 167... Start Date: 04/21/20 Status: Ordered Vivelle-Dot 0.1 mg/24 hours twice weekly transdermal film, extended release See Instructions, apply 2 patches the day after retrieval and change qod, # 32 each, 5 Refills, Maintenance, 03/17/20 13:58:00 EDT, [facility], 167, cm, 03/05/20 9:38:00 EDT, Height, 116.1, kg, 05/15/19 12:13:00 EST, Dry Weight Start Date: 03/17/20 Status: Ordered Problem List Condition Effective Dates Status Health Status Inform ant Back ache(Confirmed) Active Cervical incompetence(Confirmed) 1 12/12/17 Active Chest pain due to GERD(Confirmed) Active Morbid obesity(Confirmed) Active Visit for preventive health examination(Confirmed) Active Polycystic ovarian syndrome(Confirmed) Active Sleep apnea(Confirmed) Active 1Problem added by Discern Expert Social History Social History Type Response Smoking Status Never smoker; Tobacc o user in household: No entered on: 10/23/14 Sex
--- OUTSIDE RECORDS SUMMARY | 2022-09-21 07:18 | XMS_ITS | Continuity of Care Document ---
Author Name Unknown Organization [facility] [facility] Address [address] [place] [address]- Care Team Providers Care Continuous Crusher Operator Name Role Phone William Temple Primary Care Physician Encounter [facility] Date(s): 03/01/22 - 03/31/22 [facility] [address] [place] [address]- [place] Allergies, Adverse Reactions, Alerts Substance Reaction Severity [...] tablet, 3 Refills, Maintenance, 03/07/20 16:36:00 EDT, [facility]/pharmacy#[id number], 1 tablet By Mouth Daily,x90 days, 167, cm, 03/05/20 9:38:00 EDT, Height, 116.1, kg, 05/15/1912:13:00 EST, Dry Weight Start Date: 03/07/20 Stop Date: 03/02/21 Status: Ordered Problem List Condition Confirmation Course Effective Dates Status Health St atus Informant Back ache Confirmed Active Morbid obesity with BMI of 45.0-49.9, adult Confirmed Active Cervical incompetence 1 Confirmed 12/12/17 Active Chest pain due to GERD Confirmed Active affected by growth restriction Confirmed Active Numbness Confirmed Active Visit for preventive health examination Confirmed Active Polycystic ovarian syndrome Confirmed Active Severe obesity Confirmed Active 1Problem added by Discern Expert Social History Social History Type Response Smoking Status Never smoker; Tobacc o user in household: No entered on: 10/23/14 Sex Patient Care team information Personnel Name: William eTmple Address: Address: [address] [place] [id number]
--- OUTSIDE RECORDS SUMMARY | 2022-09-21 07:18 | XMS_ITS | Continuity of Care Document ---
Author Name Unknown Organization [facility] Address [address] [place] [address]- Care Team Providers Care Companion Caregiver Name Role Phone William Temple Primary Care Physician Encounter [facility] Date(s): 07/01/22 - [facility] [address] [place] [address]- [place] Allergies, Adverse Reactions, Alerts Substance Reaction Severity Status Avocado Active Other Environmental Allergy 1 Active 1Seasonal allergies Immunizations Given and Recorded Vaccine Date Status Refusal Reason SARS-CoV-2 (COVID-19) mRNA BNT-162b2 vac 11/04/20 Recorded SARS-CoV-2 (COVID-19) mRNA BNT-162b2 vac 10/14/20 Recorded Influenza Virus Vaccine (oldterm) 04/27/20 Recorde d pneumococcal 23-valent vaccine 04/23/18 Recorded tetanus/diphtheria/pertussis, acel(Tdap) 11/15/17 Recorded Medications Flonase 50 mcg/inh nasal spray 1 sprays, Nares, Both, 2 times a day, # 16 Gm, 0 Refills, Maintenance, 07/08/22 7:57:00 EST, [place]acy #[id number], Partial fill upon patient request if the prescription is for a schedule II opioid drug., 1 sprays Nares, Both 2 times a day, 163, c... Start Date: 07/08/22 Status: Ordered Mucinex See Instructions, 0 Refills, Maintenance, 07/08/22 7:06:00 EST, Partial fill upon patient request if the prescription is for a schedule II opioid drug. Start Date: 07/08/22 Status: Ordered Multivitamins with Folic Acid 1 mg oral tablet 1 tablet, By Mouth, Daily, # 90 tablet, 3 Refills, Maintenance, 03/07/20 16:36:00 EDT, [facility]/pharmacy#[id number], 1 tablet By Mouth Daily,x90 days, 167, cm, 03/05/20 9:38:00 EDT, Height, 116.1, kg, 05/15/1912:13:00 EST, Dry Weight Start Date: 03/07/20 Stop Date: 03/02/21 Status: Ordered triamcinolone 0.1% topical cream 1 application, Topically, 2 times a day, for 14 days, apply a thin film to affected area, # 15 Gm, 0 Refills, Acute 08/11/22 8:17:00 EST, 07/28/22 8:17:00 EST, Cream, [facility]/pharmacy #[id number], Partial fillupon patient request if the prescription is for a... Start Date: 07/28/22 Stop Date: 08/11/22 Status: Ordered Problem List Condition Confirmation Course Effective Dates Status Health St atus Informant Back ache Confirmed Active Morbid obesity with BMI of 45.0-49.9, adult Confirmed Active Severe obesity (BMI >= 40) Confirmed Active Cervical incompetence 1 Confirmed 12/12/17 [...] on: 10/23/14 Sex Patient Care team information Care Team Personnel Name: William Temple Position: [facility] PCO Associate Professional Member Role: PCP Address: Address: [address] [place] [address]- Name: Teresa Baldwin LPN Position: [facility] OB RN Member Role: Primary Care Nurse Care Team Related Persons Name: KATJA TUCKER Address: Address: home [address] [place] [address] [place] Name: RICHARD TUCKER Address: [address] Address: home [address] [place] [address] [place] Name: EDISON TUCKER Address: [address] [address] Name: EDISON TUCKER Address: home [address] [place] [address]
--- OUTSIDE RECORDS SUMMARY | 2022-09-21 07:18 | XMS_ITS | Continuity of Care Document ---
Author Name Unknown Organization [facility] ter Address [address] [place] [address]- Care Team Providers Care Metal Engraver Name Role Phone Manpreet LOUIS, Christoph Morillo Primary Care Physician Encounter [facility] Date(s): 04/21/20 - 04/21/[address] [address]- [facility] Discharge Disposition: A-D/C Home Attending Physician: Gris [...] 3 Refills, Maintenance, 03/07/20 16:35:00 EDT, Tablet, [facility]/pharmacy #[id number], 1 tablet By Mouth Daily,x21 days,Instr:starting [...] tablet, 5 Refills, Maintenance, 03/17/20 13:57:00 EDT, [facility], 167, cm, 03/05/20 9:38:00 EDT, Height, 116.1, kg, 05/15/19 12:13:00EST, Dry Weight Start Date: 03/17/20 Status: Ordered ganirelix 250 mcg/0.5 ml subcutaneous injection 0.5 mL = 250 mcg, Subcutaneous Injection, Daily, # 7 each, 5 Refills, Maintenance, 03/17/20 13:57:00 EDT, [facility], Needs meds by 04/10/2020, 167, cm, 03/05/20 9:38:00 EDT, Height, 116.1, kg, 05/15/19 12:13:00 EST, Dry Weight Start Date: 03/17/20 Status: Ordered Gonal-F 1050 units subcutaneous injection = 300 International_Units, Subcutaneous Injection, Daily, rotate injection sites, # 3 kit, 5 Refills, Maintenance, 03/17/20 13:57:00 EDT, [facility], 300 International_Units Subcutaneous Injection Daily,Instr:rotate injection sites, 16... Start Date: 03/17/20 Status: Ordered Menopur 75 intl units subcutaneous injection = 300 International_Units, Subcutaneous Injection, Daily, Take as separate injection from Gonal F.,# 40 each, 5 Refills, Maintenance, 03/17/20 13:57:00 EDT, [facility], 167, cm, 03/05/20 9:38:00 EDT, Height, 116.1, kg, 05/15/19 12:13:... Start Date: 03/17/20 Status: Ordered Ovidrel 250 mcg/0.5 mL subcutaneous solution See Instructions, Subcutaneous Injection. Take both when instructed by physician. One right after the other., # 2 each, 3 Refills, Maintenance, 03/17/20 13:58:00 EDT, [facility], 167,cm, 03/05/20 9:38:00 EDT, Height, 116.1, kg, ... Start Date: 03/17/20 Status: Ordered oxyCODONE 5 mg oral tablet 5 mg, 1, tablet, By Mouth, Every 6 hours, PRN, # 5 tablet, Refills 0, Tot. Refills 0, Maintenance, Pain , Severe, 04/21/20 12:41:00 EST, Route to Pharmacy Electronically, [facility]/pharmacy #[id number], Partial fill upon patient request, 167, cm, 03/05/20 9:38:00... Start Date: 04/21/20 Status: Ordered Multivitamins with Folic Acid 1 mg oral tablet 1 tablet, By Mouth, Daily, # 90 tablet, 3 Refills, Maintenance, 03/07/20 16:36:00 EDT, [facility]/pharmacy#[id number], 1 tablet By Mouth Daily,x90 days, 167, cm, 03/05/20 9:38:00 EDT, Height, 116.1, kg, 05/15/1912:13:00 EST, Dry Weight Start Date: 03/07/20 Stop Date: 03/02/21 Status: Ordered Prometrium 200 mg oral capsule See Instructions, 1 capsule per vagina three times a day beginning day after retrieval, # 90 capsule, 5 Refills, Maintenance, 03/17/20 13:58:00 EDT, [facility], 167, cm, 03/05/20 9:38:00 EDT, Height, [...] Stop, 04/21/20 12:41:00 EST, [facility], [facility]/pharmacy #[id number], 167... Start Date: 04/21/20 Status: Ordered Vivelle-Dot 0.1 mg/24 hours twice weekly transdermal film, extended release See Instructions, apply 2 patches the day after retrieval and change qod, # 32 each, 5 Refills, Maintenance, 03/17/20 13:58:00 EDT, [facility], 167, cm, 03/05/20 9:38:00 EDT, Height, [...]
--- OUTSIDE RECORDS SUMMARY | 2022-09-21 07:18 | XMS_ITS | Continuity of Care Document ---
Author Name Unknown Organization [facility] [employer] Address [address] [place] [address], [address] [place] [address]- Care Team Providers Care Cloud Automation Tester Name Role Phone Manpreet LOUIS, Christoph Morillo Primary Care Physician Encounter [facility] Date(s): 03/07/20 - 04/06/20 [facility] [address] [place] [address], [address] [place] [address]- [facility] Allergies, Adverse Reactions, Alerts Substance Reaction Severity [...] 3 Refills, Maintenance, 03/07/20 16:35:00 EDT, Tablet, [id number], 1 tablet By Mouth Daily,x21 days,Instr:starting [...] tablet, 5 Refills, Maintenance, 03/17/20 13:57:00 EDT, [facility], 167, cm, 03/05/20 9:38:00 EDT, Height, 116.1, kg, 05/15/19 12:13:00EST, Dry Weight Start Date: 03/17/20 Status: Ordered ganirelix 250 mcg/0.5 ml subcutaneous injection 0.5 mL = 250 mcg, Subcutaneous Injection, Daily, # 7 each, 5 Refills, Maintenance, 03/17/20 13:57:00 EDT, [facility], Needs meds by 04/10/2020, 167, cm, 03/05/20 9:38:00 EDT, Height, 116.1, kg, 05/15/19 12:13:00 EST, Dry Weight Start Date: 03/17/20 Status: Ordered Gonal-F 1050 units subcutaneous injection = 300 International_Units, Subcutaneous Injection, Daily, rotate injection sites, # 3 kit, 5 Refills, Maintenance, 03/17/20 13:57:00 EDT, [facility], 300 International_Units Subcutaneous Injection Daily,Instr:rotate injection sites, 16... Start Date: 03/17/20 Status: Ordered Menopur 75 intl units subcutaneous injection = 300 International_Units, Subcutaneous Injection, Daily, Take as separate injection from Gonal F.,# 40 each, 5 Refills, Maintenance, 03/17/20 13:57:00 EDT, [facility], 167, cm, 03/05/20 9:38:00 EDT, Height, 116.1, kg, 05/15/19 12:13:... Start Date: 03/17/20 Status: Ordered Ovidrel 250 mcg/0.5 mL subcutaneous solution See Instructions, Subcutaneous Injection. Take both when instructed by physician. One right after the other., # 2 each, 3 Refills, Maintenance, 03/17/20 13:58:00 EDT, [facility], 167,cm, 03/05/20 9:38:00 EDT, Height, 116.1, kg, ... Start Date: 03/17/20 Status: Ordered Multivitamins with Folic Acid 1 mg oral tablet 1 tablet, By Mouth, Daily, # 90 tablet, 3 Refills, Maintenance, 03/07/20 16:36:00 EDT, [facility]/pharmacy#[id number], 1 tablet By Mouth Daily,x90 days, 167, cm, 03/05/20 9:38:00 EDT, Height, 116.1, kg, 05/15/1912:13:00 EST, Dry Weight Start Date: 03/07/20 Stop Date: 03/02/21 Status: Ordered Prometrium 200 mg oral capsule See Instructions, 1 capsule per vagina three times a day beginning day after retrieval, # 90 capsule, 5 Refills, Maintenance, 03/17/20 13:58:00 EDT, [facility], 167, cm, 03/05/20 9:38:00 EDT, Height, 116.1, kg, 05/15/19 12:13:00 EST, D... Start Date: 03/17/20 Status: Ordered Vivelle-Dot 0.1 mg/24 hours twice weekly transdermal film, extended release See Instructions, apply 2 patches the day after retrieval and change qod, # 32 each, 5 Refills, Maintenance, 03/17/20 13:58:00 EDT, [facility], 167, cm, 03/05/20 9:38:00 EDT, Height, 116.1, [...]
--- OUTSIDE RECORDS SUMMARY | 2022-09-21 07:18 | XMS_ITS | Continuity of Care Document ---
Author Name Unknown Organization [facility] Address [address] [place] [address]- Care Team Providers Care Hydrostatic Tubing Tester Name Role Phone William Temple Primary Care Physician Encounter [facility] Date(s): 02/25/22 - 03/27/22 [facility] [address] [place] [address]- Attending Physician: Bernard Bailey Admitting Physician: Bernard Bailey Referring Physician: AdmtrBernard Allergies, Adverse Reactions, Alerts Substance Reaction Severity [...] Patient Care team information Personnel Name: William Temple Address: Address: [address] [place] [id number]
--- OUTSIDE RECORDS SUMMARY | 2022-09-21 07:18 | XMS_ITS | Continuity of Care Document ---
Author Name Unknown Organization [facility] [employer] Address [address] [place] [address], [address] [place] [address]- Care Team Providers Care Certified Dialysis Technician Name Role Phone Manpreet LOUIS, Christoph Morillo Primary Care Physician Encounter [facility] Date(s): 02/28/20 - 03/29/20 [facility] [facility] [address] [facility], [address] [place] [address]- [facility] Allergies, Adverse Reactions, Alerts Substance Reaction Severity [...] tablet, 5 Refills, Maintenance, 03/17/20 13:57:00 EDT, [facility], 167, cm, 03/05/20 9:38:00 EDT, Height, 116.1, kg, 05/15/19 12:13:00EST, Dry Weight Start Date: 03/17/20 Status: Ordered ganirelix 250 mcg/0.5 ml subcutaneous injection 0.5 mL = 250 mcg, Subcutaneous Injection, Daily, # 7 each, 5 Refills, Maintenance, 03/17/20 13:57:00 EDT, [facility], Needs meds by 04/10/2020, 167, cm, 03/05/20 9:38:00 EDT, Height, 116.1, kg, 05/15/19 12:13:00 EST, Dry Weight Start Date: 03/17/20 Status: Ordered Gonal-F 1050 units subcutaneous injection = 300 International_Units, Subcutaneous Injection, Daily, rotate injection sites, # 3 kit, 5 Refills, Maintenance, 03/17/20 13:57:00 EDT, [facility], 300 International_Units Subcutaneous Injection Daily,Instr:rotate injection sites, 16... Start Date: 03/17/20 Status: Ordered Menopur 75 intl units subcutaneous injection = 300 International_Units, Subcutaneous Injection, Daily, Take as separate injection from Gonal F.,# 40 each, 5 Refills, Maintenance, 03/17/20 13:57:00 EDT, [facility], 167, cm, 03/05/20 9:38:00 EDT, Height, 116.1, kg, 05/15/19 12:13:... Start Date: 03/17/20 Status: Ordered Ovidrel 250 mcg/0.5 mL subcutaneous solution See Instructions, Subcutaneous Injection. Take both when instructed by physician. One right after the other., # 2 each, 3 Refills, Maintenance, 03/17/20 13:58:00 EDT, [facility], 167,cm, 03/05/20 9:38:00 EDT, Height, 116.1, kg, ... Start Date: 03/17/20 Status: Ordered Multivitamins with Folic Acid 1 mg oral tablet 1 tablet, By Mouth, Daily, # 90 tablet, 3 Refills, Maintenance, 03/07/20 16:36:00 EDT, [facility]/pharmacy#[id number], 1 tablet By Mouth Daily,x90 days, 167, cm, 03/05/20 9:38:00 EDT, Height, 116.1, kg, 05/15/1912:13:00 EST, Dry Weight Start Date: 03/07/20 Stop Date: 03/02/21 Status: Ordered Prometrium 200 mg oral capsule See Instructions, 1 capsule per vagina three times a day beginning day after retrieval, # 90 capsule, 5 Refills, Maintenance, 03/17/20 13:58:00 EDT, [facility], 167, cm, 03/05/20 9:38:00 EDT, Height, 116.1, kg, 05/15/19 12:13:00 EST, D... Start Date: 03/17/20 Status: Ordered Vivelle-Dot 0.1 mg/24 hours twice weekly transdermal film, extended release See Instructions, apply 2 patches the day after retrieval and change qod, # 32 each, 5 Refills, Maintenance, 03/17/20 13:58:00 EDT, [facility], 167, cm, 03/05/20 9:38:00 EDT, Height, [...] recent to oldest [Reference Range]: 1 2 Height 167 cm (03/05/20 9:38 AM) 167 cm (03/05/20 9:32 AM) Weight 109 kg (03/05/20 9:38 AM) Body Mass Index [18.5-24.99] 39.08 *>HHI* (03/05/20 9:38 AM) Weight Obtained Via Patient/family state d (03/05/20 9:38 AM) Social History Social History Type Response Smoking Status Never smoker; Tobacc o user in household: No entered on: 10/23/14 Sex
--- OUTSIDE RECORDS SUMMARY | 2022-09-21 07:18 | XMS_ITS | Continuity of Care Document ---
Author Name Unknown Organization [facility] Address Unknown Care Team Providers Care Precinct Police Sergeant Name Role Phone Not on Staff, PCP Primary Care Physician Unavail able Encounter [facility] Date(s): 06/18/21 - 09/10/21 [facility] Attending Physician: Juventino Antonio Allergies, Adverse Reactions, Alerts Substance Reaction Severity [...] Health Status Inform ant Back ache(Confirmed) Active Morbid obesity with BMI of 4 5.0-49.9, adult(Confirmed) Active Cervical incompetence(Confirmed) 1 12/12/17 Active Chest pain due to GERD(Confirmed) Active affected by growth restriction(Confirmed) Active Visit for preventive health examination(Confirmed) Active Polycystic ovarian syndrome(Confirmed) Active Severe obesity(Confirmed) Active Sleep apnea(Confirmed) Active 1Problem added by Discern Expert Social History Social History Type Response Smoking Status Never smoker; Tobacc o user in household: No entered on: 10/23/14 Sex
--- OUTSIDE RECORDS SUMMARY | 2022-09-21 07:18 | XMS_ITS | Continuity of Care Document ---
Author Name Unknown Organization [email or web address] Address [address] [place] [address]- Care Team Providers Care Tour Driver Name Role Phone Not on Staff, PCP Primary Care Physician Unavail able Encounter [facility] [id number] Date(s): 01/12/22 [facility] [address] [place] [address]- [place] Allergies, Adverse Reactions, Alerts Substance Reaction [...] in household: No entered on: 10/23/14 Sex Care Team Personnel Name: Not on Staff, PCP
--- OUTSIDE RECORDS SUMMARY | 2022-09-21 07:18 | XMS_ITS | Continuity of Care Document ---
Author Name Unknown Organization [facility] ter Address [address] [place] [address]- Care Team Providers Care Slurry Mixer Name Role Phone Christoph Case MD Primary Care Physician [place] [facility] [place]/26/[place] - 08/27/[address] [address] Discharge Disposition: A-D/C Home Attending Physician: Lauren Lynch MD Admitting Physician: Lauren Lynch MD Referring Physician: Lauren Lynch MD Allergies, Adverse Reactions, Alerts Substance Reaction [...] opioid drug. Start Date: 08/23/20 Status: Ordered Sylvia 250 mg/mL intramuscular solution = 250 mg, Intramuscular, 0 Refills, Maintenance, 08/23/20 8:21:00 EST, Partial fill upon [...] apnea(Confirmed) Active 1Problem added by Discern Expert Results Orders for Microbiology Reports Name Date Urine Culture 08/26/20 Microbiology Reports TEST:Urine Culture STATUS:Auth (Verified) BODY SITE: SOURCE:CLEAN COLLECTED DATE/TIME:08/26/20 6:45 AM Urine Culture SPECIMEN DESCRIPTION : CLEAN CATCH (URINE) SPECIAL REQUESTS : NONE CULTURE : NO GROWTH REPORT STATUS : FINAL 08/27/2020 Vital Signs Most recent to oldest [Reference Range]: 1 2 3 Height 163 cm (08/26/20 10:11 AM) Weight 116.8 kg (08/26/20 10:11 AM) 116.8 kg (08/26/20 4:03 AM) Oxygen Saturation [94-100 %] 100 % (08/27/20 8:07 AM) 99 % (08/26/20 4:03 AM) Pulse Rate [55-90 bpm] 59 bpm (08/26/20 10:11 AM) 105 bpm *H* (08/26/20 4:03 AM) Body Mass Index [18.5-24.99] 43.96 *>HHI* (08/26/20 10:11 AM) Blood Pressure [90-138/55-84 mm Hg] 119/62mm Hg (08/27/20 8:07 AM) 127/69mm Hg (08/26/20 8:09 PM) 131/62mm Hg (08/26/20 2:12 PM) Respiratory Rate [16-30 br/min] 18 br/min (08/26/20 10:11 AM) 18 br/min (08/26/20 7:45 AM) 18 br/min (08/26/20 4:03 AM) Temperature [96.8-100.4 DegF] 97.6 DegF (08/27/20 8:06 AM) 97.7 DegF (08/26/20 8:09 PM) 97.9 DegF (08/26/20 10:11 AM) Mode of Delivery (Oxygen) Room air (08/27/20 8:07 AM) Room air (08/26/20 4:03 AM) Blood pressure sites Arm, left (08/26/20 10:11 AM) Arm, left 1 (08/26/20 4:03 AM) Temperature Route Oral (08/27/20 8:06 AM) Oral (08/26/20 8:09 PM) Oral (08/26/20 10:11 AM) Dry Weight 116.8 kg (08/26/20 10:11 AM) 116.8 kg (08/26/20 4:03 AM) Weight Obtained Via Standing scale (08/26/20 4:03 AM) Dry Weight Obtained Via Standing scale (08/26/20 4:03 AM) 1Result Comment: 38cm Social History Social History Type Response Smoking Status Never smoker; Tobacc o user in household: No entered on: 10/23/14 Sex
--- OUTSIDE RECORDS SUMMARY | 2022-09-21 07:18 | XMS_ITS | Continuity of Care Document ---
Author Name Unknown Organization [facility] Address [address] [place] [address]- Care Team Providers Care Waist Presser Name Role Phone William Temple Primary Care Physician En[facility] Date(s): 07/08/22 - [facility] [address] [address]- Encounter Diagnosis Sinus congestion(Discharge Diagnosis) - 07/08/22 Cough productive of yellow sputum(Discharge Diagnosis) - 07/08/22 Attending Physician: William Temple Allergies, Adverse Reactions, Alerts Substance Reaction Severity Status Avocado Active Other Environmental Allergy 1 Active 1Seasonal allergies Immunizations Given and Recorded Vaccine Date Status Refusal Reason Influenza Virus Vaccine (oldterm) 04/27/20 Recorde d Medications Flonase 50 mcg/inh nasal spray 1 sprays, Nares, Both, 2 times a day, # 16 Gm, 0 Refills, Maintenance, 07/08/22 7:57:00 EST, [id number], Partial fill upon patient request if [...] Confirmed Active 1Problem added by Discern Expert Diagnosis Diagnosis Type Effective Dates Health Status Clinical Service Informant Sinus congestion Discharge Diagnosis 07/08/22 Cough productive of yellow sputum Discharge Diagnosis 07/08/22 Vital Signs Most recent to oldest [Reference Range]: 1 Height 163 cm (07/08/22 7:03 AM) Social History Social History Type Response Smoking Status Never smoker; Tobacc o user in household: No entered on: 10/23/14 Sex Note * Camila Chi: PERFORM, SIGN, VERIFY Event Display: Patient Education/Instruction Authored Date: [id number] [facility] *BMP Quab Adlt Med Bltn Clinical Summary Name BLAIEN JONES Age 37 Years 1985 PCP William Temple PCP Visit Date 07/08/2022 07:07:00 Additional Instructions: Scheduled Appointments?? Future Appointments ?*BMP??Quab??Adlt??Med??Bltn ?[address]??[place],??[place],??[address] ?Phone:??--?Fax:??-- ?Appt. Date:??07/28/2022?7:40 AM ?Scheduled Provider:??Magdaleno LAZAR, William Verma Follow-Up Instructions ?? Diagnosis Other specified cough; Nasal congestion Medications: Please continue your medications until treatment is completed or stopped by your provider. Discuss any questions related to medications with your provider. New Medications [id number], [address] [place], [place] [id number], [phone] Benzonatate (Tessalon Perles 100 mg oral capsule) 1 capsule Oral 3 times a day for 7 Days. Refills:0. Next Dose: Fluticasone Nasal (Flonase 50 mcg/inh nasal spray) 1 spray(s) Nares, Both twice a day. Refills: 0. Next Dose: Medications to Continue with No Changes These medications were not printed or sent to your pharmacy Guaifenesin (Mucinex) Next Dose: Multivitamin, ( Multivitamins with Folic Acid 1 mg oral tablet) 1 tab(s) Oral Daily for 90 Days. Refills: 3. Next Dose: Allergy Info:?? Avocado; Other Environmental Allergy Medications Given This Visit Future Orders ?No future orders Vital Signs Height 163 cm Weight BMI Blood Pressure / Temperature Pulse Rate Respiratory Rate 02 Sat Mode of Delivery / You can now view a summary of your hospital visit from the comfort of your home through a free online portal called [employer]. [employer] is a website that allows you to securely view your medical information including discharge summary, medications and follow-up visits. ??You can alsosend a secure electronic message to your doctor???s office to request appointments, renew medications or just ask a question. You can enroll at [email or web address] or register during your next office visit. Disclaimer:?? The information provided is of a general nature and is intended to be used in conjunction with the recommendations and advice of your health care practitioner. ??Every effort has been made to ensure that the information provided is accurate and complete at the time it is provided to you however, as your needs change, or, as new ??information becomes available, different or additional instructions may be required. If you have questions, please consult with your primary care provider or pharmacist, as appropriate. ??This information is not intended to serve as substitution for assessment and evaluation by a qualified health care provider. If you do not have a primary care provider, you may find a [facility] provider by calling [facility] [employer] [facility] at [phone]. For information about the plan of care including goals and instructions for your diagnosis, please see the patient education orders section of this document. Patient Education Materials?? The content of this educational material or handout may have been modified, supplemented, or adapted from its original content and format to support your individualized medical care. Patient Care team information Care Team Personnel Name: William Temple Position: [facility] PCO Associate Professional Member Role: PCP Address: Address: [address] [place] [id number] Name: Teresa Baldwin LPN Position: [facility] OB RN Member Role: Primary Care Nurse Care Team Related Persons Name: GARRETT KATJA Address: [address] Address: [address] [address] [place] Name: RICHARD TUCKER Address: [address] Address: [address] [place] Name: EDISON TUCKER Address: [address] [address] Name: EDISON TUCKER Address: [address] [address]
--- OUTSIDE RECORDS SUMMARY | 2022-09-21 07:18 | XMS_ITS | Continuity of Care Document ---
Author Name Unknown Organization [facility] Address [address] [place] [phone]- Care Team Providers Care Denture Finisher Name Role Phone Manpreet LOUIS, Christoph Morillo Primary Care Physician [place] [facility] [place]s): 06/30/20 - 07/30/20 [facility] [address] [place] [id number] Attending Physician: Admtr, Ar8 Admitting Physician: Admtr, Ar8 Referring Physician: Admtr, Ar8 Allergies, Adverse Reactions, Alerts Substance Reaction Severity Status Other Environmental Allergy 1 Active Avocado Active 1Seasonal allergies Immunizations Given and Recorded Vaccine Date Status Refusal Reason Influenza Virus Vaccine (oldterm) 04/27/20 Recorde d Medications 27 g 1/2 inch needle 27 [...] 3 Refills, Maintenance, 03/07/20 16:35:00 EDT, Tablet, [facility]/pharmacy #[id number], 1 tablet By Mouth Daily,x21 days,Instr:starting [...] tablet, 5 Refills, Maintenance, 03/17/20 13:57:00 EDT, [facility], 167, cm, 03/05/20 9:38:00 EDT, Height, 116.1, kg, 05/15/19 12:13:00EST, Dry Weight Start Date: 03/17/20 Status: Ordered ganirelix 250 mcg/0.5 ml subcutaneous injection 0.5 mL = 250 mcg, Subcutaneous Injection, Daily, # 7 each, 5 Refills, Maintenance, 03/17/20 13:57:00 EDT, [facility], Needs meds by 04/10/2020, 167, cm, 03/05/20 9:38:00 EDT, Height, 116.1, kg, 05/15/19 12:13:00 EST, Dry Weight Start Date: 03/17/20 Status: Ordered Gonal-F 1050 units subcutaneous injection = 300 International_Units, Subcutaneous Injection, Daily, rotate injection sites, # 3 kit, 5 Refills, Maintenance, 03/17/20 13:57:00 EDT, [facility], 300 International_Units Subcutaneous Injection Daily,Instr:rotate injection sites, 16... Start Date: 03/17/20 Status: Ordered indomethacin 25 mg oral capsule 1 capsule = 25 mg, By Mouth, 3 times a day, PRN Pain , Moderate, # 9 capsule, 0 Refills, Maintenance, 07/11/20 14:59:00 EST, Capsule, [facility]/pharmacy #[id number], Partial fill upon patient request if the prescription is for a schedule II opioid drug., 167, cm,... Start Date: 07/11/20 Stop Date: 07/14/20 Status: Ordered Menopur 75 intl units subcutaneous injection = 300 International_Units, Subcutaneous Injection, Daily, Take as separate injection from Gonal F.,# 40 each, 5 Refills, Maintenance, 03/17/20 13:57:00 EDT, [facility], 167, cm, 03/05/20 9:38:00 EDT, Height, 116.1, kg, 05/15/19 12:13:... Start Date: 03/17/20 Status: Ordered Ovidrel 250 mcg/0.5 mL subcutaneous solution See Instructions, Subcutaneous Injection. Take both when instructed by physician. One right after the other., # 2 each, 3 Refills, Maintenance, 03/17/20 13:58:00 EDT, [facility], 167,cm, 03/05/20 9:38:00 EDT, Height, 116.1, kg, ... Start Date: 03/17/20 Status: Ordered oxyCODONE 5 mg oral tablet 5 mg, 1, tablet, By Mouth, Every 6 hours, PRN, # 5 tablet, Refills 0, Tot. Refills 0, Maintenance, Pain , Severe, 04/21/20 12:41:00 EST, Route to Pharmacy Electronically, [facility]/pharmacy #[id number], Partial fill upon patient request, 167, cm, 03/05/20 9:38:00... Start Date: 04/21/20 Status: Ordered Multivitamins with Folic Acid 1 mg oral tablet 1 tablet, By Mouth, Daily, # 90 tablet, 3 Refills, Maintenance, 03/07/20 16:36:00 EDT, [facility]/pharmacy#[id number], 1 tablet By Mouth Daily,x90 days, 167, cm, 03/05/20 9:38:00 EDT, Height, 116.1, kg, 05/15/1912:13:00 EST, Dry Weight Start Date: 03/07/20 Stop Date: 03/02/21 Status: Ordered Prometrium 200 mg oral capsule See Instructions, 1 capsule per vagina three times a day beginning day after retrieval, # 90 capsule, 5 Refills, Maintenance, 03/17/20 13:58:00 EDT, [facility], 167, cm, 03/05/20 9:38:00 EDT, Height, 116.1, kg, 05/15/19 12:13:00 EST, D... Start Date: 03/17/20 Status: Ordered Valium 5 mg oral tablet 5 mg, 1, tablet, By Mouth, Once, 1 tab po 1hr before procedure take the other with you to the hospital. May repeat X 1., # 2 tablet, Refills 0, Tot. Refills 0, Soft Stop, 04/21/20 12:41:00 EST, [facility], [facility]/pharmacy #[id number], 167... Start Date: 04/21/20 Status: Ordered Vivelle-Dot 0.1 mg/24 hours twice weekly transdermal film, extended release See Instructions, apply 2 patches the day after retrieval and change qod, # 32 each, 5 Refills, Maintenance, 03/17/20 13:58:00 EDT, [facility], 167, cm, 03/05/20 9:38:00 [...]
--- OUTSIDE RECORDS SUMMARY | 2022-09-21 07:18 | XMS_ITS | Continuity of Care Document ---
Author Name Unknown Organization [facility] Address [address] [place] [address], [address]t [address] [place] [phone]- Care Team Providers Care Clay Products Machine Operator Name Role Phone Manpreet LOUIS, Christoph Morillo Primary Care Physician [place] [facility] [place] [facility] [address] [place] [address], [address] [place] [address]- [facility] Attending Physician: Bernard Bailey Admitting Physician: [id number] Referring Physician: Admtr, Ar8 Allergies, Adverse Reactions, Alerts Substance Reaction Severity Status Other Environmental Allergy 1 Active Avocado Active 1Seasonal allergies Medications albuterol 0.083% inhalation solution 3 mL = 2.5 mg, Inhalation, Every 6 hours, PRN Wheezing/Shortness of Breath, 0 Refills, Maintenance Start Date: 03/30/13 Status: Ordered metFORMIN 500 mg oral tablet, extended release 4 tablet = 2,000 mg, By Mouth, Daily, with evening meal, start 1 tab daily, increase gradually to maximum of 2000 mg/day, # 120 tablet, 11 Refills, Maintenance, 05/29/19 10:16:41 EST, 167, cm, 05/29/19 9:54:46 EST, Height, 116.1, kg, 05/15/19 12:13:19... Start Date: 05/29/19 Stop Date: 05/23/20 Status: Ordered Multivitamins with Folic Acid 1 mg oral tablet 1 tablet, By Mouth, Daily, # 90 tablet, 4 Refills, Maintenance, 04/11/19 11:00:43 EDT, 1 tablet By Mouth Daily Start Date: 04/11/19 Status: Ordered sertraline 25 mg oral tablet See Instructions, # 30 tablet, Refills 5 Tot. Refills 5, TAKE 1 TABLET BY MOUTH EVERY DAY, [facility]/pharmacy #[id number] Start Date: 03/20/19 Status: Ordered Problem List Condition Effective Dates [...]
--- OUTSIDE RECORDS SUMMARY | 2022-09-21 07:18 | XMS_ITS | Continuity of Care Document ---
Author Name Unknown Organization [facility] Address [address] [facility], 4t [address] [place] [phone]- Care Team Providers Care Medicare Sales Executive Name Role Phone Manpreet LOUIS, Christoph Morillo Primary Care Physician [place] [facility] [place]s): 05/26/20 - 06/25/20 [facility] [address] [facility], 4th [address] [place] [id number] Attending Physician: Bernard Bailey Admitting Physician: AdmtrBernard Referring Physician: Admtr Ar8 Allergies, Adverse Reactions, Alerts Substance Reaction [...] tablet, 5 Refills, Maintenance, 03/17/20 13:57:00 EDT, [facility], 167, cm, 03/05/20 9:38:00 EDT, Height, 116.1, kg, 05/15/19 12:13:00EST, Dry Weight Start Date: 03/17/20 Status: Ordered ganirelix 250 mcg/0.5 ml subcutaneous injection 0.5 mL = 250 mcg, Subcutaneous Injection, Daily, # 7 each, 5 Refills, Maintenance, 03/17/20 13:57:00 EDT, [facility], Needs meds by 04/10/2020, 167, cm, 03/05/20 9:38:00 EDT, Height, 116.1, kg, 05/15/19 12:13:00 EST, Dry Weight Start Date: 03/17/20 Status: Ordered Gonal-F 1050 units subcutaneous injection = 300 International_Units, Subcutaneous Injection, Daily, rotate injection sites, # 3 kit, 5 Refills, Maintenance, 03/17/20 13:57:00 EDT, [facility], 300 International_Units Subcutaneous Injection Daily,Instr:rotate injection sites, 16... Start Date: 03/17/20 Status: Ordered Menopur 75 intl units subcutaneous injection = 300 International_Units, Subcutaneous Injection, Daily, Take as separate injection from Gonal F.,# 40 each, 5 Refills, Maintenance, 03/17/20 13:57:00 EDT, [facility], 167, cm, 03/05/20 9:38:00 EDT, Height, 116.1, kg, 05/15/19 12:13:... Start Date: 03/17/20 Status: Ordered Ovidrel 250 mcg/0.5 mL subcutaneous solution See Instructions, Subcutaneous Injection. Take both when instructed by physician. One right after the other., # 2 each, 3 Refills, Maintenance, 03/17/20 13:58:00 EDT, [facility], 167,cm, 03/05/20 9:38:00 EDT, Height, 116.1, kg, ... Start Date: 03/17/20 Status: Ordered oxyCODONE 5 mg oral tablet 5 mg, 1, tablet, By Mouth, Every 6 hours, PRN, # 5 tablet, Refills 0, Tot. Refills 0, Maintenance, Pain , Severe, 04/21/20 12:41:00 EST, Route to Pharmacy Electronically, [facility]/pharmacy #[id number], Partial fill upon patient request, 167, cm, 03/05/20 9:38:00... Start Date: 04/21/20 Status: Ordered Multivitamins with Folic Acid 1 mg oral tablet 1 tablet, By Mouth, Daily, # 90 tablet, 3 Refills, Maintenance, 03/07/20 16:36:00 EDT, [facility]/pharmacy#[id number], 1 tablet By Mouth Daily,x90 days, 167, cm, 03/05/20 9:38:00 EDT, Height, 116.1, kg, 05/15/1912:13:00 EST, Dry Weight Start Date: 03/07/20 Stop Date: 03/02/21 Status: Ordered Prometrium 200 mg oral capsule See Instructions, 1 capsule per vagina three times a day beginning day after retrieval, # 90 capsule, 5 Refills, Maintenance, 03/17/20 13:58:00 EDT, [facility], 167, cm, 03/05/20 9:38:00 EDT, Height, [...] Stop, 04/21/20 12:41:00 EST, [facility], [facility]/pharmacy #[id number], 167... Start Date: 04/21/20 Status: Ordered Vivelle-Dot 0.1 mg/24 hours twice weekly transdermal film, extended release See Instructions, apply 2 patches the day after retrieval and change qod, # 32 each, 5 Refills, Maintenance, 03/17/20 13:58:00 EDT, [facility], 167, cm, 03/05/20 9:38:00 EDT, Height, [...]
--- OUTSIDE RECORDS SUMMARY | 2022-09-21 07:18 | XMS_ITS | Continuity of Care Document ---
Author Name Unknown Organization [facility] Address Unknown Care Team Providers Care Inside Sales Lead Name Role Phone Not on Staff, PCP Primary Care Physician Unavail able En[place] [facility] [place] Date(s): 06/03/21 - 08/07/21 [facility] Attending Physician: Anastasia Bell RD Referring Physician: Christoph Case MD Allergies, Adverse Reactions, Alerts Substance Reaction [...]
--- OUTSIDE RECORDS SUMMARY | 2022-09-21 07:18 | XMS_ITS | Continuity of Care Document ---
Author Name Unknown Organization [facility] Address [address] [place] [address]- Care Team Providers Care Beck Operator Name Role Phone William Temple Primary Care Physician Encounter [facility] Date(s): 07/02/22 - 08/01/22 [email or web address] [address] [place] [address] [place] Allergies, Adverse Reactions, Alerts Substance Reaction [...] Gm, 0 Refills, Maintenance, 07/08/22 7:57:00 EST, [id number], Partial fill upon patient request if [...] tablet, 3 Refills, Maintenance, 03/07/20 16:36:00 EDT, [facility]/pharmacy#[id number], 1 tablet By Mouth Daily,x90 days, 167, cm, 03/05/20 9:38:00 EDT, Height, 116.1, kg, 05/15/1912:13:00 EST, Dry Weight Start Date: 03/07/20 Stop Date: 03/02/21 Status: Ordered triamcinolone 0.1% topical cream 1 application, Topically, 2 times a day, for 14 days, apply a thin film to affected area, # 15 Gm, 0 Refills, Acute 08/11/22 8:17:00 EST, 07/28/22 8:17:00 EST, Cream, [facility]/pharmacy #[id number], Partial fillupon patient request if [...] Care Team Personnel Name: William Temple Position: [facility] PCO Associate Professional Member Role: PCP Address: Address: [address] [place] [phone]- Name: Teresa Baldwin LPN Position: [facility] OB RN Member Role: Primary Care Nurse Care Team Related Persons Name: KATJA TUCKER Address: [address] Address: home [address] [place] [address] [place] Name: RICHARD TUCKER Address: [address] Address: [address] [address] [place] Name: EDISON TUCKER Address: [address] [address] Name: EDISON TUCKER Address: home [address] [place] [address]
--- OUTSIDE RECORDS SUMMARY | 2022-09-21 07:18 | XMS_ITS | Continuity of Care Document ---
Author Name Unknown Organization [facility] Address [address] [place] [address]- Care Team Providers Care Extended Day Teacher Name Role Phone Manpreet LOUIS, Christoph Morillo Primary Care Physician [place] [facility] [place] - 08/28/20 [facility] [address] [place] [id number] Allergies, Adverse Reactions, Alerts Substance Reaction Severity [...]
--- OUTSIDE RECORDS SUMMARY | 2022-09-21 07:18 | XMS_ITS | Continuity of Care Document ---
Author Name Unknown Organization [facility] ter Address [address] [place] [address]- Care Team Providers Care Edger Machine Operator Name Role Phone Not on Staff, PCP Primary Care Physician Unavail able [place] [facility] [place] - 10/18/[address] [id number] Discharge Disposition: A-D/C Home Attending Physician: Amanda [...]
--- OUTSIDE RECORDS SUMMARY | 2022-09-21 07:18 | XMS_ITS | Continuity of Care Document ---
Author Name Unknown Organization [facility] ter Address [address] [place] [id number]- Care Team Providers Care Construction Project Assistant Name Role Phone Christoph Case MD Primary Care Physician Encounter [facility] [place] Date(s): 08/23/20 - 08/23/[address] [id number] Discharge Disposition: A-D/C Home Attending Physician: Yael Martinez DO Admitting Physician: Yael Martinez DO Referring Physician: Yael Martinez DO Allergies, Adverse Reactions, Alerts Substance Reaction Severity [...] opioid drug. Start Date: 08/23/20 Status: Ordered [place] 250 mg/mL intramuscular solution = 250 mg, [...] apnea(Confirmed) Active 1Problem added by Discern Expert Procedures Procedure Date Related Diagnosis Body Site Status Cerclage of cervix 2020 Comple oscar Cerclage of cervix 2017 Comple oscar Vital Signs Most recent to oldest [Reference Range]: 1 Weight 115.8 kg (08/23/20 7:52 AM) Oxygen Saturation [94-100 %] 100 % (08/23/20 7:52 AM) Pulse Rate [55-90 bpm] 90 bpm (08/23/20 7:52 AM) Blood Pressure [90-138/55-84 mm Hg] 131/ 78mm Hg (08/23/20 7:52 AM) Respiratory Rate [16-30 br/min] 18 br/mi n (08/23/20 7:52 AM) Temperature [96.8-100.4 DegF] 98.1 DegF (08/23/20 7:52 AM) Mode of Delivery (Oxygen) Room air (08/23/20 7:52 AM) Blood pressure sites Arm, right 1 (08/23/20 7:52 AM) Temperature Route Oral (08/23/20 7:52 AM) Dry Weight 115.8 kg (08/23/20 7:52 AM) 1Result Comment: right upper arm 41cm Social History Social History Type Response Smoking Status Never smoker; Tobacc o user in household: No entered on: 10/23/14 Sex
--- OUTSIDE RECORDS SUMMARY | 2022-09-21 07:18 | XMS_ITS | Continuity of Care Document ---
Author Name Unknown Organization [facility] e Medicine Address [address] [facility], 4t h [address] [place] [phone]- Care Team Providers Care Color Shop Helper Name Role Phone Christoph Case MD Primary [id number]19/[facility] - 04/26/20 [facility] [address] [facility], 4th Floor [address] [place] [id number]- Attending Physician: Teresa Lara MD Referring Physician: Christoph Case MD Allergies, Adverse [...] tablet, 5 Refills, Maintenance, 03/17/20 13:57:00 EDT, [facility], 167, cm, 03/05/20 9:38:00 EDT, Height, 116.1, kg, 05/15/19 12:13:00EST, Dry Weight Start Date: 03/17/20 Status: Ordered ganirelix 250 mcg/0.5 ml subcutaneous injection 0.5 mL = 250 mcg, Subcutaneous Injection, Daily, # 7 each, 5 Refills, Maintenance, 03/17/20 13:57:00 EDT, [facility], Needs meds by 04/10/2020, 167, cm, 03/05/20 9:38:00 EDT, Height, 116.1, kg, 05/15/19 12:13:00 EST, Dry Weight Start Date: 03/17/20 Status: Ordered Gonal-F 1050 units subcutaneous injection = 300 International_Units, Subcutaneous Injection, Daily, rotate injection sites, # 3 kit, 5 Refills, Maintenance, 03/17/20 13:57:00 EDT, [facility], 300 International_Units Subcutaneous Injection Daily,Instr:rotate injection sites, 16... Start Date: 03/17/20 Status: Ordered Menopur 75 intl units subcutaneous injection = 300 International_Units, Subcutaneous Injection, Daily, Take as separate injection from Gonal F.,# 40 each, 5 Refills, Maintenance, 03/17/20 13:57:00 EDT, [facility], 167, cm, 03/05/20 9:38:00 EDT, Height, 116.1, kg, 05/15/19 12:13:... Start Date: 03/17/20 Status: Ordered Ovidrel 250 mcg/0.5 mL subcutaneous solution See Instructions, Subcutaneous Injection. Take both when instructed by physician. One right after the other., # 2 each, 3 Refills, Maintenance, 03/17/20 13:58:00 EDT, [facility], 167,cm, 03/05/20 9:38:00 EDT, Height, 116.1, kg, ... Start Date: 03/17/20 Status: Ordered oxyCODONE 5 mg oral tablet 5 mg, 1, tablet, By Mouth, Every 6 hours, PRN, # 5 tablet, Refills 0, Tot. Refills 0, Maintenance, Pain , Severe, 04/21/20 12:41:00 EST, Route to Pharmacy Electronically, [facility]/pharmacy #[id number], Partial fill upon patient request, 167, cm, 03/05/20 9:38:00... Start Date: 04/21/20 Status: Ordered Multivitamins with Folic Acid 1 mg oral tablet 1 tablet, By Mouth, Daily, # 90 tablet, 3 Refills, Maintenance, 03/07/20 16:36:00 EDT, [facility]/pharmacy#[id number], 1 tablet By Mouth Daily,x90 days, 167, cm, 03/05/20 9:38:00 EDT, Height, 116.1, kg, 05/15/1912:13:00 EST, Dry Weight Start Date: 03/07/20 Stop Date: 03/02/21 Status: Ordered Prometrium 200 mg oral capsule See Instructions, 1 capsule per vagina three times a day beginning day after retrieval, # 90 capsule, 5 Refills, Maintenance, 03/17/20 13:58:00 EDT, [facility], 167, cm, 03/05/20 9:38:00 EDT, Height, 116.1, kg, 05/15/19 12:13:00 EST, D... Start Date: 03/17/20 Status: Ordered Valium 5 mg oral tablet 5 mg, 1, tablet, By Mouth, Once, 1 tab po 1hr before procedure take the other with you to the hospital. May repeat X 1., # 2 tablet, Refills 0, Tot. Refills 0, Soft Stop, 04/21/20 12:41:00 EST[facility] #[id number], 167... Start Date: 04/21/20 Status: Ordered Vivelle-Dot 0.1 mg/24 hours twice weekly transdermal film, extended release See Instructions, apply 2 patches the day after retrieval and change qod, # 32 each, 5 Refills, Maintenance, 03/17/20 13:58:00 EDT, [facility], 167, cm, 03/05/20 9:38:00 EDT, [...]
--- OUTSIDE RECORDS SUMMARY | 2022-09-21 07:18 | XMS_ITS | Continuity of Care Document ---
Author Name Unknown Organization [facility] e Medicine Address [address] [facility], 4t [address] [place] [address]- Care Team Providers Care Craft Demonstrator Name Role Phone Manpreet LOUIS, Christoph Morillo Primary Care Physician Encounter [facility] [place] Date(s): 03/19/20 - 04/18/20 [facility] [address] [facility], 4th Floor [address] [place] [address] [facility] Allergies, Adverse Reactions, Alerts Substance Reaction Severity [...] tablet, 5 Refills, Maintenance, 03/17/20 13:57:00 EDT, [facility], 167, cm, 03/05/20 9:38:00 EDT, Height, 116.1, kg, 05/15/19 12:13:00EST, Dry Weight Start Date: 03/17/20 Status: Ordered ganirelix 250 mcg/0.5 ml subcutaneous injection 0.5 mL = 250 mcg, Subcutaneous Injection, Daily, # 7 each, 5 Refills, Maintenance, 03/17/20 13:57:00 EDT, [facility], Needs meds by 04/10/2020, 167, cm, 03/05/20 9:38:00 EDT, Height, 116.1, kg, 05/15/19 12:13:00 EST, Dry Weight Start Date: 03/17/20 Status: Ordered Gonal-F 1050 units subcutaneous injection = 300 International_Units, Subcutaneous Injection, Daily, rotate injection sites, # 3 kit, 5 Refills, Maintenance, 03/17/20 13:57:00 EDT, [facility], 300 International_Units Subcutaneous Injection Daily,Instr:rotate injection sites, 16... Start Date: 03/17/20 Status: Ordered Menopur 75 intl units subcutaneous injection = 300 International_Units, Subcutaneous Injection, Daily, Take as separate injection from Gonal F.,# 40 each, 5 Refills, Maintenance, 03/17/20 13:57:00 EDT, [facility], 167, cm, 03/05/20 9:38:00 EDT, Height, 116.1, kg, 05/15/19 12:13:... Start Date: 03/17/20 Status: Ordered Ovidrel 250 mcg/0.5 mL subcutaneous solution See Instructions, Subcutaneous Injection. Take both when instructed by physician. One right after the other., # 2 each, 3 Refills, Maintenance, 03/17/20 13:58:00 EDT, [facility], 167,cm, 03/05/20 9:38:00 EDT, Height, 116.1, kg, ... Start Date: 03/17/20 Status: Ordered Multivitamins with Folic Acid 1 mg oral tablet 1 tablet, By Mouth, Daily, # 90 tablet, 3 Refills, Maintenance, 03/07/20 16:36:00 EDT, [facility]/pharmacy#[id number], 1 tablet By Mouth Daily,x90 days, 167, cm, 03/05/20 9:38:00 EDT, Height, 116.1, kg, 05/15/1912:13:00 EST, Dry Weight Start Date: 03/07/20 Stop Date: 03/02/21 Status: Ordered Prometrium 200 mg oral capsule See Instructions, 1 capsule per vagina three times a day beginning day after retrieval, # 90 capsule, 5 Refills, Maintenance, 03/17/20 13:58:00 EDT, [facility], 167, cm, 03/05/20 9:38:00 EDT, Height, 116.1, kg, 05/15/19 12:13:00 EST, D... Start Date: 03/17/20 Status: Ordered Vivelle-Dot 0.1 mg/24 hours twice weekly transdermal film, extended release See Instructions, apply 2 patches the day after retrieval and change qod, # 32 each, 5 Refills, Maintenance, 03/17/20 13:58:00 EDT, [facility], 167, cm, 03/05/20 9:38:00 EDT, Height, [...]
--- OUTSIDE RECORDS SUMMARY | 2022-09-21 07:18 | XMS_ITS | Continuity of Care Document ---
Author Name Unknown Organization [facility] e Medicine Address [address] [facility], 4t [address] [place] [address]- Care Team Providers Care Field Administrator Name Role Phone Manpreet LOUIS, Christoph Morillo [id number] - 06/02/20 [facility] [address] [facility], 4th [address] [place] [address] Attending Physician: Sara Flores MD Referring Physician: Rosa Lujan MD Allergies, Adverse Reactions, Alerts Substance Reaction [...] tablet, 5 Refills, Maintenance, 03/17/20 13:57:00 EDT, [facility], 167, cm, 03/05/20 9:38:00 EDT, Height, 116.1, kg, 05/15/19 12:13:00EST, Dry Weight Start Date: 03/17/20 Status: Ordered ganirelix 250 mcg/0.5 ml subcutaneous injection 0.5 mL = 250 mcg, Subcutaneous Injection, Daily, # 7 each, 5 Refills, Maintenance, 03/17/20 13:57:00 EDT, [facility], Needs meds by 04/10/2020, 167, cm, 03/05/20 9:38:00 EDT, Height, 116.1, kg, 05/15/19 12:13:00 EST, Dry Weight Start Date: 03/17/20 Status: Ordered Gonal-F 1050 units subcutaneous injection = 300 International_Units, Subcutaneous Injection, Daily, rotate injection sites, # 3 kit, 5 Refills, Maintenance, 03/17/20 13:57:00 EDT, [facility], 300 International_Units Subcutaneous Injection Daily,Instr:rotate injection sites, 16... Start Date: 03/17/20 Status: Ordered Menopur 75 intl units subcutaneous injection = 300 International_Units, Subcutaneous Injection, Daily, Take as separate injection from Gonal F.,# 40 each, 5 Refills, Maintenance, 03/17/20 13:57:00 EDT, [facility], 167, cm, 03/05/20 9:38:00 EDT, Height, 116.1, kg, 05/15/19 12:13:... Start Date: 03/17/20 Status: Ordered Ovidrel 250 mcg/0.5 mL subcutaneous solution See Instructions, Subcutaneous Injection. Take both when instructed by physician. One right after the other., # 2 each, 3 Refills, Maintenance, 03/17/20 13:58:00 EDT, [facility], 167,cm, 03/05/20 9:38:00 EDT, Height, 116.1, kg, ... Start Date: 03/17/20 Status: Ordered oxyCODONE 5 mg oral tablet 5 mg, 1, tablet, By Mouth, Every 6 hours, PRN, # 5 tablet, Refills 0, Tot. Refills 0, Maintenance, Pain , Severe, 04/21/20 12:41:00 EST, Route to Pharmacy Electronically, [facility]/pharmacy #[id number], Partial fill upon patient request, 167, cm, 03/05/20 9:38:00... Start Date: 04/21/20 Status: Ordered Multivitamins with Folic Acid 1 mg oral tablet 1 tablet, By Mouth, Daily, # 90 tablet, 3 Refills, Maintenance, 03/07/20 16:36:00 EDT, [facility]/pharmacy#[id number], 1 tablet By Mouth Daily,x90 days, 167, cm, 03/05/20 9:38:00 EDT, Height, 116.1, kg, 05/15/1912:13:00 EST, Dry Weight Start Date: 03/07/20 Stop Date: 03/02/21 Status: Ordered Prometrium 200 mg oral capsule See Instructions, 1 capsule per vagina three times a day beginning day after retrieval, # 90 capsule, 5 Refills, Maintenance, 03/17/20 13:58:00 EDT, [facility], 167, cm, 03/05/20 9:38:00 EDT, [...] Stop, 04/21/20 12:41:00 EST, [facility], [facility]/pharmacy #[id number], 167... Start Date: 04/21/20 Status: Ordered Vivelle-Dot 0.1 mg/24 hours twice weekly transdermal film, extended release See Instructions, apply 2 patches the day after retrieval and change qod, # 32 each, 5 Refills, Maintenance, 03/17/20 13:58:00 EDT, [facility], 167, cm, 03/05/20 9:38:00 EDT, [...]
--- OUTSIDE RECORDS SUMMARY | 2022-09-21 07:18 | XMS_ITS | Continuity of Care Document ---
Author Name Unknown Organization [facility] Address [address] [place] [phone]- Care Team Providers Care General Counselor Name Role Phone Manpreet LOUIS, Christoph Morillo Primary Care Physician [place] [facility] [place] - 08/03/20 [facility] [address] [place] [id number] Allergies, Adverse Reactions, Alerts Substance Reaction Severity [...] tablet, 5 Refills, Maintenance, 03/17/20 13:57:00 EDT, [facility], 167, cm, 03/05/20 9:38:00 EDT, Height, 116.1, kg, 05/15/19 12:13:00EST, Dry Weight Start Date: 03/17/20 Status: Ordered ganirelix 250 mcg/0.5 ml subcutaneous injection 0.5 mL = 250 mcg, Subcutaneous Injection, Daily, # 7 each, 5 Refills, Maintenance, 03/17/20 13:57:00 EDT, [facility], Needs meds by 04/10/2020, 167, cm, 03/05/20 9:38:00 EDT, Height, 116.1, kg, 05/15/19 12:13:00 EST, Dry Weight Start Date: 03/17/20 Status: Ordered Gonal-F 1050 units subcutaneous injection = 300 International_Units, Subcutaneous Injection, Daily, rotate injection sites, # 3 kit, 5 Refills, Maintenance, 03/17/20 13:57:00 EDT, [facility], 300 International_Units Subcutaneous Injection Daily,Instr:rotate injection sites, 16... Start Date: 03/17/20 Status: Ordered indomethacin 25 mg oral capsule 1 capsule = 25 mg, By Mouth, 3 times a day, PRN Pain , Moderate, # 9 capsule, 0 Refills, Maintenance, 07/11/20 14:59:00 EST, Capsule, [facility]/pharmacy #[id number], Partial fill upon patient request if the prescription is for a schedule II opioid drug., 167, cm,... Start Date: 07/11/20 Stop Date: 07/14/20 Status: Ordered Menopur 75 intl units subcutaneous injection = 300 International_Units, Subcutaneous Injection, Daily, Take as separate injection from Gonal F.,# 40 each, 5 Refills, Maintenance, 03/17/20 13:57:00 EDT, [facility], 167, cm, 03/05/20 9:38:00 EDT, Height, 116.1, kg, 05/15/19 12:13:... Start Date: 03/17/20 Status: Ordered Ovidrel 250 mcg/0.5 mL subcutaneous solution See Instructions, Subcutaneous Injection. Take both when instructed by physician. One right after the other., # 2 each, 3 Refills, Maintenance, 03/17/20 13:58:00 EDT, [facility], 167,cm, 03/05/20 9:38:00 EDT, Height, 116.1, kg, ... Start Date: 03/17/20 Status: Ordered oxyCODONE 5 mg oral tablet 5 mg, 1, tablet, By Mouth, Every 6 hours, PRN, # 5 tablet, Refills 0, Tot. Refills 0, Maintenance, Pain , Severe, 04/21/20 12:41:00 EST, Route to Pharmacy Electronically, [facility]/pharmacy #[id number], Partial fill upon patient request, 167, cm, 03/05/20 9:38:00... Start Date: 04/21/20 Status: Ordered Multivitamins with Folic Acid 1 mg oral tablet 1 tablet, By Mouth, Daily, # 90 tablet, 3 Refills, Maintenance, 03/07/20 16:36:00 EDT, [facility]/pharmacy#[id number], 1 tablet By Mouth Daily,x90 days, 167, cm, 03/05/20 9:38:00 EDT, Height, 116.1, kg, 05/15/1912:13:00 EST, Dry Weight Start Date: 03/07/20 Stop Date: 03/02/21 Status: Ordered Prometrium 200 mg oral capsule See Instructions, 1 capsule per vagina three times a day beginning day after retrieval, # 90 capsule, 5 Refills, Maintenance, 03/17/20 13:58:00 EDT, [facility], 167, cm, 03/05/20 9:38:00 EDT, Height, 116.1, kg, 05/15/19 12:13:00 EST, D... Start Date: 03/17/20 Status: Ordered Valium 5 mg oral tablet 5 mg, 1, tablet, By Mouth, Once, 1 tab po 1hr before procedure take the other with you to the hospital. May repeat X 1., # 2 tablet, Refills 0, Tot. Refills 0, Soft Stop, 04/21/20 12:41:00 EST[facility] #[id number], 167... Start Date: 04/21/20 Status: Ordered Vivelle-Dot 0.1 mg/24 hours twice weekly transdermal film, extended release See Instructions, apply 2 patches the day after retrieval and change qod, # 32 each, 5 Refills, Maintenance, 03/17/20 13:58:00 EDT, [facility], 167, cm, 03/05/20 9:38:00 [...]
--- OUTSIDE RECORDS SUMMARY | 2022-09-21 07:18 | XMS_ITS | Continuity of Care Document ---
Author Name Unknown Organization [facility] Address Unknown Care Team Providers Care Restaurant Assistant Name Role Phone Christoph Case MD Primary Care Physician Encounter [facility] [place] Date(s): 06/03/21 - 06/10/21 [facility] Encounter Diagnosis Morbid obesity with BMI of 45.0-49.9, adult(Discharge Diagnosis) - 06/03/21 History of sleeve gastrectomy(Discharge Diagnosis) - 06/03/21 Attending Physician: Mark Mir MD Referring Physician: Christoph Case MD Allergies, [...] apnea(Confirmed) Active 1Problem added by Discern Expert Diagnosis Diagnosis Type Effective Dates Health Status Clinical Service Informant History of sleeve gastrectomy Discharge Diagnosis 06/03/21 Morbid obesity with BMI of 45.0-49.9, adult Discharge Diagnosis 06/03/21 Vital Signs Most recent to oldest [Reference Range]: 1 Height 163 cm (06/03/21 9:29 AM) Weight 122.8 kg (06/03/21 9:29 AM) Pulse Rate [55-90 bpm] 97 bpm *H* (06/03/21 9:29 AM) Body Mass Index [18.5-24.99] 46.22 *>HHI* (06/03/21 9:29 AM) Blood Pressure [90-138/55-84 mm Hg] 121/ 86mm Hg (06/03/21 9:29 AM) Temperature [96.8-100.4 DegF] 97.1 DegF (06/03/21 9:29 AM) Blood pressure sites Arm, left (06/03/21 9:29 AM) Temperature Route Temporal (06/03/21 9:29 AM) Weight Obtained Via Standing scale (06/03/21 9:29 AM) Social History Social History Type Response Smoking Status Never smoker; Tobacc o user in household: No entered on: 10/23/14 Sex
--- OUTSIDE RECORDS SUMMARY | 2022-09-21 07:18 | XMS_ITS | Continuity of Care Document ---
Author Name Unknown Organization [facility] e Medicine Address [address] [facility], 4t [address] [place] [address]- Care Team Providers Care Industrial Arts Teacher Name Role Phone Christoph Case MD Primary Care Physician [id number] Date(s): 04/04/20 - 04/11/20 [facility] [address] [facility], 4th [address] [place] [address] [facility] Attending Physician: Teresa Lara MD Referring Physician: [...] 3 Refills, Maintenance, 03/07/20 16:35:00 EDT, Tablet, [facility]/pharmacy #[id number], 1 tablet By Mouth Daily,x21 [...] tablet, 5 Refills, Maintenance, 03/17/20 13:57:00 EDT, [facility], 167, cm, 03/05/20 9:38:00 EDT, Height, 116.1, kg, 05/15/19 12:13:00EST, Dry Weight Start Date: 03/17/20 Status: Ordered ganirelix 250 mcg/0.5 ml subcutaneous injection 0.5 mL = 250 mcg, Subcutaneous Injection, Daily, # 7 each, 5 Refills, Maintenance, 03/17/20 13:57:00 EDT, [facility], Needs meds by 04/10/2020, 167, cm, 03/05/20 9:38:00 EDT, Height, 116.1, kg, 05/15/19 12:13:00 EST, Dry Weight Start Date: 03/17/20 Status: Ordered Gonal-F 1050 units subcutaneous injection = 300 International_Units, Subcutaneous Injection, Daily, rotate injection sites, # 3 kit, 5 Refills, Maintenance, 03/17/20 13:57:00 EDT, [facility], 300 International_Units Subcutaneous Injection Daily,Instr:rotate injection sites, 16... Start Date: 03/17/20 Status: Ordered Menopur 75 intl units subcutaneous injection = 300 International_Units, Subcutaneous Injection, Daily, Take as separate injection from Gonal F.,# 40 each, 5 Refills, Maintenance, 03/17/20 13:57:00 EDT, [facility], 167, cm, 03/05/20 9:38:00 EDT, Height, 116.1, kg, 05/15/19 12:13:... Start Date: 03/17/20 Status: Ordered Ovidrel 250 mcg/0.5 mL subcutaneous solution See Instructions, Subcutaneous Injection. Take both when instructed by physician. One right after the other., # 2 each, 3 Refills, Maintenance, 03/17/20 13:58:00 EDT, [facility], 167,cm, 03/05/20 9:38:00 EDT, Height, 116.1, kg, ... Start Date: 03/17/20 Status: Ordered Multivitamins with Folic Acid 1 mg oral tablet 1 tablet, By Mouth, Daily, # 90 tablet, 3 Refills, Maintenance, 03/07/20 16:36:00 EDT, [facility]/pharmacy#[id number], 1 tablet By Mouth Daily,x90 days, 167, cm, 03/05/20 9:38:00 EDT, Height, 116.1, kg, 05/15/1912:13:00 EST, Dry Weight Start Date: 03/07/20 Stop Date: 03/02/21 Status: Ordered Prometrium 200 mg oral capsule See Instructions, 1 capsule per vagina three times a day beginning day after retrieval, # 90 capsule, 5 Refills, Maintenance, 03/17/20 13:58:00 EDT, [facility], 167, cm, 03/05/20 9:38:00 EDT, Height, 116.1, kg, 05/15/19 12:13:00 EST, D... Start Date: 03/17/20 Status: Ordered Vivelle-Dot 0.1 mg/24 hours twice weekly transdermal film, extended release See Instructions, apply 2 patches the day after retrieval and change qod, # 32 each, 5 Refills, Maintenance, 03/17/20 13:58:00 EDT, [facility], 167, cm, 03/05/20 9:38:00 EDT, Height, [...]
--- OUTSIDE RECORDS SUMMARY | 2022-09-21 07:18 | XMS_ITS | Continuity of Care Document ---
Author Name Unknown Organization [facility] Address [address] [facility], 4t [address] [place] [phone]- Care Team Providers Care Monument Installer Name Role Phone Christoph Case MD Primary Care Physician [place] [facility] [place] 05/29/19 - 06/05/19 [facility] [address] [facility], 4th [address] [place] [address]- [facility] Attending Physician: Rosa Lujan MD Referring Physician: Christoph Case MD Allergies, [...] TAKE 1 TABLET BY MOUTH EVERY DAY, [facility][id number] Start Date: 03/20/19 Status: Ordered Problem List Condition Effective Dates Status Health Status Inform ant Back ache(Confirmed) Active Cervical incompetence(Confirmed) 1 12/12/17 Active Chest pain due to GERD(Confirmed) Active Morbid obesity(Confirmed) Active Visit for preventive health examination(Confirmed) Active Polycystic ovarian syndrome(Confirmed) Active Sleep apnea(Confirmed) Active 1Problem added by Discern Expert Vital Signs Most recent to oldest [Reference Range]: 1 Height 167 cm (05/29/19 9:54 AM) Weight 118 kg (05/29/19 9:54 AM) Pulse Rate [55-90 bpm] 87 bpm (05/29/19 9:54 AM) Body Mass Index [18.5-24.99] 42.31 *>HHI* (05/29/19 9:54 AM) Blood Pressure [90-138/55-84 mm Hg] 125/ 67mm Hg (05/29/19 9:54 AM) Blood pressure sites Arm, right (05/29/19 9:54 AM) Social History Social History Type Response Smoking Status Never smoker; Tobacc o user in household: No entered on: 10/23/14 Sex
--- OUTSIDE RECORDS SUMMARY | 2022-09-21 07:18 | XMS_ITS | Continuity of Care Document ---
Author Name Unknown Organization [facility] Address [address] [place] [phone]- Care Team Providers Care Supervisor Inventory Merchandising Name Role Phone Manpreet LOUIS, Christoph Morillo Primary Care Physician [place] [facility] [place] 07/29/20 - 08/28/20 [facility] [address] [place] [id number] Allergies, Adverse Reactions, Alerts Substance [...]
--- OUTSIDE RECORDS SUMMARY | 2022-09-21 07:19 | XMS_ITS | Continuity of Care Document ---
Author Name Unknown Organization [facility] ter Address [address] [place] [address]- Care Team Providers Care Brazing Machine Setter Name Role Phone William Temple Primary Care Physician Encounter [facility] Date(s): 04/27/22 - 04/27/[address] [address]- Encounter Diagnosis Burn(Final) - 04/27/22 Discharge Disposition: A-D/C Home Attending Physician: Enrique Lee MD Admitting Physician: Enrique Lee MD Referring Physician: Not on Staff, Referring MD Allergies, Adverse Reactions, Alerts Substance Reaction [...] Confirmed Active 1Problem added by Discern Expert Vital Signs Most recent to oldest [Reference Range]: 1 2 Oxygen Saturation [94-100 %] 100 % (04/27/22 10:38 AM) 99 % (04/27/22 10:24 AM) Pulse Rate [55-90 bpm] 90 bpm (04/27/22 10:38 AM) 92 bpm *H* (04/27/22 10:24 AM) Blood Pressure [90-138/55-84 mm Hg] 158/ 89mm Hg *H* (04/27/22 10:38 AM) Respiratory Rate [16-30 br/min] 20 br/mi n (04/27/22 10:38 AM) Temperature [96.8-100.4 DegF] 98.1 DegF (04/27/22 10:38 AM) Mode of Delivery (Oxygen) Room air (04/27/22 10:38 AM) Room air (04/27/22 10:24 AM) Blood pressure sites Arm, left (04/27/22 10:38 AM) Temperature Route Oral (04/27/22 10:38 AM) Social History Social History Type Response Smoking Status Never smoker; Tobacc o user in household: No entered on: 10/23/14 Sex Note * Crissy LOUIS, Scott Kinsey: PERFORM Event Display: Patient Education Leaflets Authored Date: [id number] First-Degree Burn ?? [id number] First-Degree Burn A burn occurs when skin is exposed to too much heat, sun, or harsh chemicals. A first-degree burn (superficial burn) causes mainly redness. It heals in a few days. It doesn't blister. Home care Follow these guidelines when caring for yourself at home: ??? Use pain medicine as advised. You mayuse tejp-xrf-udktpzy medicine to control pain if no pain medicine was prescribed. If you have chronic liver or kidney disease, talk with your healthcare provider before using acetaminophen or ibuprofen. Also talk with your provider if you've had a stomach ulcer or GI (gastrointestinal) bleeding. ??? On the first day, you may put a cool compress on the burn to relieve pain. You can use a small towel soaked in cool water as a cool compress. Don't use ice or ice water. ??? Moisturizers with aloe vera can help soothe the burn. ??? Don't pick or scratch at the affected areas. Use fqau-pvq-zoztmyo medicines such as diphenhydramine for itching. This medicine is taken by mouth. ??? Since you don't have an open wound, you don't need to use antibiotic cream or ointment. Sometimes an infection may occur even with correct treatment. Be sure to check the burn daily for the signs of infection listed below. ??? Wear a hat, sunscreen, and long sleeves while in the sun. ??? Wear loose-fitting clothes u ntil the burn heals. ??? Drink extra water. This will prevent fluid loss (dehydration). Sunburns pull fluid to the skin???s surface and away from the rest of the body. ?? Follow-up care Follow up with your healthcare provider as advised. Most first-degree gracia heal well without complications. ?? When to get medical advice Call your healthcare provider right away if any of these signs of infection occur: ??? Fever of 100.4??F (38??C) or higher, or as advised by your provider ??? Pain gets worse ??? Redness or swelling gets worse ??? Pus comes from the burn ??? Red streaks in your skin come from the burn ??? Wound doesn't seem to be healing ?? Last Reviewed Date: 2022 ?? [id number] [employer]. All rights reserved. This information is not intended as a substitute for professional medical care. Always follow your healthcare professional's instructions. ?? Patient Care team information Care Team Personnel Name: William Temple Position: [facility] PCO Associate Professional Member Role: PCP Address: Address: [address] [place] [id number] Name: Teresa Baldwin LPN Position: [facility] OB RN Member Role: Primary Care Nurse Name: Vanesa Dietz MD Position: [facility] ED Medicine MD Address: Address: [address] [place] [address]- [place] Name: Scott Woodward MD Position: [facility] Resident Member Role: ED Resident Address: Address: [address] [place] [address] [address]- Name: Whitley Grissom Position: [facility] ED TA [facility] Member Role: Assistant Therapy Aide Name: Tiana Harris RN Position: [facility] ED RN W/OE and Tasks Member Role: Patient Care Provider Care Team Related Persons Name: KATJA TUCKER Address: [address] Address: home [address] [place] [address] [place] Name: RICHARD TUCKER Address: [address] Address: [address] [address] [place] Name: EDISON TUCKER Address: [address] [address] Name: EDISON TUCKER Address: [place] [address]
--- OUTSIDE RECORDS SUMMARY | 2022-09-21 07:19 | XMS_ITS | Continuity of Care Document ---
Author Name Unknown Organization [facility] e Medicine Address [address] [facility], 4t h Floor [address] [place] [address]- Care Team Providers Care Concrete Mixing Truck Driver Name Role Phone Christoph Case MD Primary Care Physician [id number]17[facility] - 04/24/20 [facility] [address] [facility], 4th Floor [address] [place] [address]- Attending Physician: Rosa Lujan MD Referring Physician: [...] tablet, 5 Refills, Maintenance, 03/17/20 13:57:00 EDT, [facility], 167, cm, 03/05/20 9:38:00 EDT, Height, 116.1, kg, 05/15/19 12:13:00EST, Dry Weight Start Date: 03/17/20 Status: Ordered ganirelix 250 mcg/0.5 ml subcutaneous injection 0.5 mL = 250 mcg, Subcutaneous Injection, Daily, # 7 each, 5 Refills, Maintenance, 03/17/20 13:57:00 EDT, [facility], Needs meds by 04/10/2020, 167, cm, 03/05/20 9:38:00 EDT, Height, 116.1, kg, 05/15/19 12:13:00 EST, Dry Weight Start Date: 03/17/20 Status: Ordered Gonal-F 1050 units subcutaneous injection = 300 International_Units, Subcutaneous Injection, Daily, rotate injection sites, # 3 kit, 5 Refills, Maintenance, 03/17/20 13:57:00 EDT, [facility], 300 International_Units Subcutaneous Injection Daily,Instr:rotate injection sites, 16... Start Date: 03/17/20 Status: Ordered Menopur 75 intl units subcutaneous injection = 300 International_Units, Subcutaneous Injection, Daily, Take as separate injection from Gonal F.,# 40 each, 5 Refills, Maintenance, 03/17/20 13:57:00 EDT, [facility], 167, cm, 03/05/20 9:38:00 EDT, Height, 116.1, kg, 05/15/19 12:13:... Start Date: 03/17/20 Status: Ordered Ovidrel 250 mcg/0.5 mL subcutaneous solution See Instructions, Subcutaneous Injection. Take both when instructed by physician. One right after the other., # 2 each, 3 Refills, Maintenance, 03/17/20 13:58:00 EDT, [facility], 167,cm, 03/05/20 9:38:00 EDT, Height, [...] capsule, 5 Refills, Maintenance, 03/17/20 13:58:00 EDT, [facility], 167, cm, 03/05/20 9:38:00 EDT, [...] each, 5 Refills, Maintenance, 03/17/20 13:58:00 EDT, [facility], 167, cm, 03/05/20 9:38:00 EDT, [...]
--- OUTSIDE RECORDS SUMMARY | 2022-09-21 07:19 | XMS_ITS | Continuity of Care Document ---
Author Name Unknown Organization [facility] Address Unknown Care Team Providers Care Carpenter Mate Name Role Phone Not on Staff, PCP Primary Care Physician Unavail able Encounter [facility] Date(s): 09/04/21 - 10/04/21 [facility] Attending Physician: Bernard Bailey Admitting Physician: Bernard [...]
--- OUTSIDE RECORDS SUMMARY | 2022-09-21 07:19 | XMS_ITS | Continuity of Care Document ---
Author Name Unknown Organization [facility] Address [address] [facility], 4t h Floor [address] [place] [address]- Care Team Providers Care Lvn Name Role Phone Manpreet LOUIS, Christoph P Primary Care Physician [id number](s): 03/07/20 - 03/14/20 [facility] [address] [facility], 4th Floor [address] [place] [address] [facility] Attending Physician: Rosa Lujan MD Allergies, Adverse Reactions, [...] EDT, Tablet Start Date: 03/05/20 Status: Ordered Multivitamins with Folic Acid 1 [...] Procedure Date Related Diagnosis Body Site Status Hysteroscopy, surgical; with sampling (biopsy) of endometrium and/or polypectomy, with or without D & C 04/2019 Completed Social History Social History Type Response Smoking Status Never smoker; Tobacc o user in household: No entered on: 10/23/14 Sex
--- OUTSIDE RECORDS SUMMARY | 2022-09-21 07:19 | XMS_ITS | Continuity of Care Document ---
Author Name Unknown Organization [facility] Address [address] [place] [address]- Care Team Providers Care Rn Clinical Research Name Role Phone William Temple Primary Care Physician En[facility] [id number] Date(s): 07/28/22 [facility] [address] [address]- Encounter Diagnosis Physical exam(Discharge Diagnosis) - 07/28/22 Back ache(Discharge Diagnosis) - 07/28/22 Hand dermatitis(Discharge Diagnosis) - 07/28/22 Numbness(Discharge Diagnosis) - 07/28/22 Pitting of nails(Discharge Diagnosis) - 07/28/22 Severe obesity (BMI >= 40)(Discharge Diagnosis) - 07/28/22 Attending Physician: William Temple Allergies, Adverse Reactions, [...] Gm, 0 Refills, Maintenance, 07/08/22 7:57:00 EST, [place],[id number], Partial fill upon patient request if [...] 08/11/22 8:17:00 EST, 07/28/22 8:17:00 EST, [place], [id number], Partial fillupon patient request if the [...] Effective Dates Health Status Clinical Service Informant Physical exam Discharge Diagnosis 07/28/22 Back ache Discharge Diagnosis 07/28/22 Hand dermatitis Discharge Diagnosis 07/28/22 Numbness Discharge Diagnosis 07/28/22 Pitting of nails Discharge Diagnosis 07/28/22 Severe obesity (BMI >= 40) Discharge Diagnosis 07/28/22 Vital Signs Most recent to oldest [Reference Range]: 1 Height 163 cm (07/28/22 7:44 AM) Weight 113.4 kg (07/28/22 7:44 AM) Oxygen Saturation [94-100 %] 96 % (07/28/22 7:44 AM) Pulse Rate [55-90 bpm] 74 bpm (07/28/22 7:44 AM) Body Mass Index [18.5-24.99 kg/m2] 42.68 kg/m2 *>HHI* (07/28/22 7:44 AM) Blood Pressure [90-138/55-84 mm Hg] 118/ 76mm Hg (07/28/22 7:44 AM) Temperature [96.8-100.4 DegF] 97.7 DegF (07/28/22 7:44 AM) Mode of Delivery (Oxygen) Room air (07/28/22 7:44 AM) Blood pressure sites Arm, right (07/28/22 7:44 AM) Temperature Route Temporal (07/28/22 7:44 AM) Weight Obtained Via Standing scale (07/28/22 7:44 AM) Social History Social History Type Response Smoking Status Never smoker; Tobacc o user in household: No entered on: 10/23/14 Sex Note * Camila Chi: PERFORM, SIGN, VERIFY Event Display: Patient Education/Instruction Authored Date: [id number] [facility] *BMP Quab Adlt Med Bltn Clinical Summary Name BLAINE JONES Age 37 Years 1985 PCP William Temple PCP Visit Date 07/28/2022 07:41:00 Additional Instructions: Scheduled Appointments?? Future Appointments ?No Future Appointments Scheduled Follow-Up Instructions ?? Diagnosis Dermatitis, unspecified; Dorsalgia, unspecified; Encounter for general adult medical examination without abnormal findings; Anesthesia of skin; Morbid (severe) obesity due to excess calories; Other nail disorders Medications: Please continue your medications until treatment is completed or stopped by your provider. Discuss any questions related to medications with your provider. New Medications [id number], [address], [place] [id number], [phone] Triamcinolone Topical (triamcinolone 0.1% topical cream) 1 benny Topically twice a day for 14 Days. apply a thin film to affected area. Refills: 0. Next Dose: Medications to Continue with No Changes These medications were not printed or sent to your pharmacy Fluticasone Nasal (Flonase 50 mcg/inh nasal spray) 1 spray(s) Nares, Both twice a day. Refills: 0. Next Dose: Guaifenesin (Mucinex) Next Dose: Multivitamin, ( Multivitamins with Folic Acid 1 mg oral tablet) 1 tab(s) Oral Daily for 90 Days. Refills: 3. Next Dose: Allergy Info:?? Avocado; Other Environmental Allergy Medications Given This Visit Future Orders ?No future orders Vital Signs Height 163 cm Weight 113.4 kg BMI 42.68 kg/m2 Blood Pressure 118 mm Hg/76 mm Hg Temperature 97.7 DegF Pulse Rate 74 bpm Respiratory Rate 02 Sat Mode of Delivery 96 %/Room air You can now view a summary of your hospital visit from the comfort of your home through a free online portal called [employer]. [employer] is a website that allows you to securely view your medical information including discharge summary, medications and follow-up visits. ??You can alsosend a secure electronic message to your doctor???s office to request appointments, renew medications or just ask a question. You can enroll at [email or web address] or register during your next office visit. [...] primary care provider, you may find a [facility] provider by calling [facility] Link at [phone]. For information about the plan of care [...] Associate Professional Member Role: PCP Address: Address: [address] [place] [id number] Name: Teresa Baldwin LPN Position: [facility] OB RN Member Role: Primary Care Nurse Care Team Related Persons Name: KATJA TUCKER Address: [address] Address: [address] [address] [place] Name: RICHARD TUCKER Address: [address] Address: [address] [address] [place] Name: EDISON TUCKER Address: [address] [address] Name: EDISON TUCKER Address: [address] [address]
--- OUTSIDE RECORDS SUMMARY | 2022-09-21 07:19 | XMS_ITS | Continuity of Care Document ---
Author Name Unknown Organization [facility] ter Address [address] [place] [address]- Care Team Providers Care Biofuels Production Technician Name Role Phone Christoph Case MD Primary Care Physician Encounter [facility] Date(s): 07/11/20 - 07/11/[address] [address] Discharge Disposition: A-D/C Home Attending Physician: Lorna Ramirez MD Admitting Physician: Lorna Ramirez MD Referring Physician: Lorna Ramirez MD Allergies, Adverse Reactions, Alerts Substance Reaction [...] 3 Refills, Maintenance, 03/07/20 16:35:00 EDT, Tablet, [facility] #[id number], 1 tablet By Mouth Daily,x21 days,Instr:starting [...] tablet, 5 Refills, Maintenance, 03/17/20 13:57:00 EDT, [facility], 167, cm, 03/05/20 9:38:00 EDT, Height, 116.1, kg, 05/15/19 12:13:00EST, Dry Weight Start Date: 03/17/20 Status: Ordered ganirelix 250 mcg/0.5 ml subcutaneous injection 0.5 mL = 250 mcg, Subcutaneous Injection, Daily, # 7 each, 5 Refills, Maintenance, 03/17/20 13:57:00 EDT, [facility], Needs meds by 04/10/2020, 167, cm, 03/05/20 9:38:00 EDT, Height, 116.1, kg, 05/15/19 12:13:00 EST, Dry Weight Start Date: 03/17/20 Status: Ordered Gonal-F 1050 units subcutaneous injection = 300 International_Units, Subcutaneous Injection, Daily, rotate injection sites, # 3 kit, 5 Refills, Maintenance, 03/17/20 13:57:00 EDT, [facility], 300 International_Units Subcutaneous Injection Daily,Instr:rotate injection sites, 16... Start Date: 03/17/20 Status: Ordered indomethacin 25 mg oral capsule 1 capsule = 25 mg, By Mouth, 3 times a day, PRN Pain , Moderate, # 9 capsule, 0 Refills, Maintenance, 07/11/20 14:59:00 EST, Capsule, [facility] #[id number], Partial fill upon patient request if the prescription is for a schedule II opioid drug., 167, cm,... Start Date: 07/11/20 Stop Date: 07/14/20 Status: Ordered Menopur 75 intl units subcutaneous injection = 300 International_Units, Subcutaneous Injection, Daily, Take as separate injection from Gonal F.,# 40 each, 5 Refills, Maintenance, 03/17/20 13:57:00 EDT, [facility], 167, cm, 03/05/20 9:38:00 EDT, Height, 116.1, kg, 05/15/19 12:13:... Start Date: 03/17/20 Status: Ordered Ovidrel 250 mcg/0.5 mL subcutaneous solution See Instructions, Subcutaneous Injection. Take both when instructed by physician. One right after the other., # 2 each, 3 Refills, Maintenance, 03/17/20 13:58:00 EDT, [facility], 167,cm, 03/05/20 9:38:00 EDT, Height, 116.1, kg, ... Start Date: 03/17/20 Status: Ordered oxyCODONE 5 mg oral tablet 5 mg, 1, tablet, By Mouth, Every 6 hours, PRN, # 5 tablet, Refills 0, Tot. Refills 0, Maintenance, Pain , Severe, 04/21/20 12:41:00 EST, Route to Pharmacy Electronically, [id number], Partial fill upon patient request, 167, cm, 03/05/20 9:38:00... Start Date: 04/21/20 Status: Ordered Multivitamins with Folic Acid 1 mg oral tablet 1 tablet, By Mouth, Daily, # 90 tablet, 3 Refills, Maintenance, 03/07/20 16:36:00 EDT, [facility][id number], 1 tablet By Mouth Daily,x90 days, 167, cm, 03/05/20 9:38:00 EDT, Height, 116.1, kg, 05/15/1912:13:00 EST, Dry Weight Start Date: 03/07/20 Stop Date: 03/02/21 Status: Ordered Prometrium 200 mg oral capsule See Instructions, 1 capsule per vagina three times a day beginning day after retrieval, # 90 capsule, 5 Refills, Maintenance, 03/17/20 13:58:00 EDT, [facility], 167, cm, 03/05/20 9:38:00 EDT, Height, 116.1, kg, 05/15/19 12:13:00 EST, D... Start Date: 03/17/20 Status: Ordered Valium 5 mg oral tablet 5 mg, 1, tablet, By Mouth, Once, 1 tab po 1hr before procedure take the other with you to the hospital. May repeat X 1., # 2 tablet, Refills 0, Tot. Refills 0, Soft Stop, 04/21/20 12:41:00 EST, [facility] Electron[facility], [id number], 167... Start Date: 04/21/20 Status: Ordered Vivelle-Dot 0.1 mg/24 hours twice weekly transdermal film, extended release See Instructions, apply 2 patches the day after retrieval and change qod, # 32 each, 5 Refills, Maintenance, 03/17/20 13:58:00 EDT, [facility], 167, cm, 03/05/20 9:38:00 EDT, [...] to oldest [Reference Range]: 1 2 3 Weight 114.5 kg (07/11/20 12:22 PM) Oxygen Saturation [94-100 %] 100 % (07/11/20 3:30 PM) 100 % (07/11/20 3:15 PM) 100 % (07/11/20 3:05 PM) Pulse Rate [55-90 bpm] 77 bpm (07/11/20 12:22 PM) Blood Pressure [90-138/55-84 mm Hg] 126/87mm Hg (07/11/20 3:15 PM) 123/61mm Hg (07/11/20 3:05 PM) 134/88mm Hg (07/11/20 12:22 PM) Respiratory Rate [16-30 br/min] 19 br/min (07/11/20 3:30 PM) 16 br/min (07/11/20 3:15 PM) 17 br/min (07/11/20 3:05 PM) Temperature [96.8-100.4 DegF] 98.5 DegF (07/11/20 4:00 PM) 98.1 DegF (07/11/20 3:05 PM) 98.4 DegF (07/11/20 12:22 PM) Mode of Delivery (Oxygen) Room air (07/11/20 5:45 PM) Room air (07/11/20 3:05 PM) Room air (07/11/20 12:22 PM) Blood pressure sites Arm, right (07/11/20 3:15 PM) Arm, right (07/11/20 3:05 PM) Temperature Route Temporal (07/11/20 4:00 PM) Temporal (07/11/20 3:05 PM) Temporal (07/11/20 12:22 PM) Social History Social History Type Response Smoking Status Never smoker; Tobacc o user in household: No entered on: 10/23/14 Sex
--- OUTSIDE RECORDS SUMMARY | 2022-09-21 07:19 | XMS_ITS | Continuity of Care Document ---
Author Name Unknown Organization [facility] Address [address] [place] [address]- Care Team Providers Care Shape Carver Name Role Phone William Temple Primary Care Physician En[facility] [id number] Date(s): 02/25/22 - [facility]04[facility] [address] [place] [address]- Encounter Diagnosis Health care maintenance(Discharge Diagnosis) - 02/25/22 Numbness(Discharge Diagnosis) - 02/25/22 Encounter to establish care(Discharge Diagnosis) - 02/25/22 Chest pain due to GERD(Discharge Diagnosis) - 02/25/22 Attending Physician: William Temple Allergies, Adverse Reactions, [...] GERD(Confirmed) Active affected by growth restriction(Confirmed) Active Numbness(Confirmed) Active Visit for preventive health examination(Confirmed) Active Polycystic ovarian syndrome(Confirmed) Active Severe obesity(Confirmed) Active 1Problem added by Discern Expert Diagnosis Diagnosis Type Effective Dates Health Status Clinical Service Informant Health care maintenance Discharge Diagnosis 02/25/22 Numbness Discharge Diagnosis 02/25/22 Encounter to establish care Discharge Diagnosis 02/25/22 Chest pain due to GERD Discharge Diagnosis 02/25/22 Vital Signs Most recent to oldest [Reference Range]: 1 Height 163 cm (02/25/22 11:30 AM) Social History Social History Type Response Smoking Status Never smoker; Tobacc o user in household: No entered on: 10/23/14 Sex Care Team Personnel Name: William Temple Address: [address] [place] [address]
--- OUTSIDE RECORDS SUMMARY | 2022-09-21 07:19 | XMS_ITS | Continuity of Care Document ---
Author Name Unknown Organization [facility] Address Unknown Care Team Providers Care Certified Medical Records Coder Name Role Phone Not on Staff, PCP Primary Care Physician Unavail able Encounter [facility] Date(s): 08/19/21 - 10/04/21 [facility] Attending Physician: Anastasia Bell RD [...]
--- OUTSIDE RECORDS SUMMARY | 2022-09-21 07:19 | XMS_ITS | Continuity of Care Document ---
Author Name Unknown Organization [facility] [employer] Address [address] [place] [address], [address] [place] [address]- Care Team Providers Care Vice President Of Brand Management Name Role Phone Manpreet LOUIS, Christoph Morillo Primary Care Physician Encounter [facility] Date(s): 03/17/20 - 04/16/20 [facility] [employer] [facility] [address] [place] [address], [address] [place] [address]- [facility] Allergies, Adverse Reactions, Alerts Substance Reaction Severity [...] tablet, 5 Refills, Maintenance, 03/17/20 13:57:00 EDT, [facility], 167, cm, 03/05/20 9:38:00 EDT, Height, 116.1, kg, 05/15/19 12:13:00EST, Dry Weight Start Date: 03/17/20 Status: Ordered ganirelix 250 mcg/0.5 ml subcutaneous injection 0.5 mL = 250 mcg, Subcutaneous Injection, Daily, # 7 each, 5 Refills, Maintenance, 03/17/20 13:57:00 EDT, [facility], Needs meds by 04/10/2020, 167, cm, 03/05/20 9:38:00 EDT, Height, 116.1, kg, 05/15/19 12:13:00 EST, Dry Weight Start Date: 03/17/20 Status: Ordered Gonal-F 1050 units subcutaneous injection = 300 International_Units, Subcutaneous Injection, Daily, rotate injection sites, # 3 kit, 5 Refills, Maintenance, 03/17/20 13:57:00 EDT, [facility], 300 International_Units Subcutaneous Injection Daily,Instr:rotate injection sites, 16... Start Date: 03/17/20 Status: Ordered Menopur 75 intl units subcutaneous injection = 300 International_Units, Subcutaneous Injection, Daily, Take as separate injection from Gonal F.,# 40 each, 5 Refills, Maintenance, 03/17/20 13:57:00 EDT, [facility], 167, cm, 03/05/20 9:38:00 EDT, Height, 116.1, kg, 05/15/19 12:13:... Start Date: 03/17/20 Status: Ordered Ovidrel 250 mcg/0.5 mL subcutaneous solution See Instructions, Subcutaneous Injection. Take both when instructed by physician. One right after the other., # 2 each, 3 Refills, Maintenance, 03/17/20 13:58:00 EDT, [facility], 167,cm, 03/05/20 9:38:00 EDT, Height, 116.1, kg, ... Start Date: 03/17/20 Status: Ordered Multivitamins with Folic Acid 1 mg oral tablet 1 tablet, By Mouth, Daily, # 90 tablet, 3 Refills, Maintenance, 03/07/20 16:36:00 EDT, [id number], 1 tablet By Mouth Daily,x90 days, 167, cm, 03/05/20 9:38:00 EDT, Height, 116.1, kg, 05/15/1912:13:00 EST, Dry Weight Start Date: 03/07/20 Stop Date: 03/02/21 Status: Ordered Prometrium 200 mg oral capsule See Instructions, 1 capsule per vagina three times a day beginning day after retrieval, # 90 capsule, 5 Refills, Maintenance, 03/17/20 13:58:00 EDT, [facility], 167, cm, 03/05/20 9:38:00 EDT, Height, 116.1, kg, 05/15/19 12:13:00 EST, D... Start Date: 03/17/20 Status: Ordered Vivelle-Dot 0.1 mg/24 hours twice weekly transdermal film, extended release See Instructions, apply 2 patches the day after retrieval and change qod, # 32 each, 5 Refills, Maintenance, 03/17/20 13:58:00 EDT, [facility], 167, cm, 03/05/20 9:38:00 EDT, Height, 116.1, [...]
--- OUTSIDE RECORDS SUMMARY | 2022-09-21 07:19 | XMS_ITS | Continuity of Care Document ---
Author Name Unknown [facility] Address [address] [place] [address]- Care Team Providers Care Statement Request Clerk Name Role Phone Not on Staff, PCP Primary Care Physician Unavail able Encounter [facility] NBR [id number] Date(s): 01/12/22 - [facility] [address] [place] [address]- [place] Allergies, Adverse Reactions, Alerts Substance Reaction [...]
--- OUTSIDE RECORDS SUMMARY | 2022-09-21 07:19 | XMS_ITS | Continuity of Care Document ---
Author Name Unknown Organization [facility] Address Unknown Care Team Providers Care Car Pusher Name Role Phone Christoph Case MD Primary Care Physician Encounter [facility] Date(s): 08/19/21 - 08/26/21 [facility] Attending Physician: Mark Mir MD Referring Physician: [...] oldest [Reference Range]: 1 Height 163 cm (08/19/21 1:05 PM) Weight 125.9 kg (08/19/21 1:05 PM) Pulse Rate [55-90 bpm] 87 bpm (08/19/21 1:05 PM) Body Mass Index [18.5-24.99] 47.39 *>HHI* (08/19/21 1:05 PM) Blood Pressure [90-138/55-84 mm Hg] 139/ 87mm Hg *H* (08/19/21 1:05 PM) Respiratory Rate [16-30 br/min] 16 br/mi n (08/19/21 1:05 PM) Temperature [96.8-100.4 DegF] 97.0 DegF (08/19/21 1:05 PM) Blood pressure sites Arm, right (08/19/21 1:05 PM) Temperature Route Temporal (08/19/21 1:05 PM) Weight Obtained Via Standing scale (08/19/21 1:05 PM) Social History Social History Type Response Smoking Status Never smoker; Tobacc o user in household: No entered on: 10/23/14 Sex
--- OUTSIDE RECORDS SUMMARY | 2022-09-21 07:19 | XMS_ITS | Continuity of Care Document ---
Author Name Unknown Organization [facility] Address [address] [place] [address]- Care Team Providers Care Pipe Fitter [employer] Name Role Phone Not on Staff, PCP Primary Care Physician Unavail able Encounter [facility] NBR [id number] Date(s): 01/12/22 - 02/11/22 [facility] [address] [place] [address]- Allergies, Adverse Reactions, Alerts Substance Reaction Severity [...]
--- OUTSIDE RECORDS SUMMARY | 2022-09-21 07:19 | XMS_ITS | Continuity of Care Document ---
Author Name Unknown Organization [facility] Address [address] [place] [address]- Care Team Providers Care Dock Worker Name Role Phone Manpreet LOUIS, Christoph Morillo Primary Care Physician Encounter [facility] Date(s): 08/21/20 - 09/26/[address] [address] Attending Physician: Juan LOUIS, August Admitting Physician: Juan LOUIS, August Referring Physician: Juan LOUIS, August Allergies, Adverse Reactions, Alerts Substance Reaction Severity [...]
--- OUTSIDE RECORDS SUMMARY | 2022-09-21 07:19 | XMS_ITS | Continuity of Care Document ---
Author Name Unknown Organization [facility] Address [address] [place] [address]- Care Team Providers Care Fishing Vessel Deckhand Name Role Phone William Temple Primary Care Physician Encounter [facility] Date(s): 08/13/22 - 09/12/22 [facility] [address] [place] [address]- [place] Allergies, Adverse Reactions, Alerts Substance Reaction Severity Status Other Environmental Allergy 1 Active Avocado Active 1Seasonal allergies Immunizations Given and Recorded Vaccine Date Status Refusal Reason SARS-CoV-2 (COVID-19) mRNA BNT-162b2 vac 11/04/20 Recorded SARS-CoV-2 (COVID-19) mRNA BNT-162b2 vac 10/14/20 Recorded Influenza Virus Vaccine (oldterm) 04/27/20 Recorde d pneumococcal 23-valent vaccine 04/23/18 Recorded tetanus/diphtheria/pertussis, acel(Tdap) 11/15/17 Recorded Medications fluticasone 50 mcg/inh nasal spray See Instructions, USE 1 SPRAY IN EACH NOSTRIL TWICE A DAY, # 16 mL, 0 Refills, Maintenance, 08/09/22 11:45:00 EST, [id number], 30, USE 1 SPRAY IN EACH NOSTRIL TWICE A DAY, 163, cm, 07/28/22 7:44:00 EST, Height, 114.7, kg, 09/01/20 8:39:00 EDTDr... Start Date: 08/09/22 Status: Ordered Mucinex See Instructions, 0 Refills, [...] Care Team Personnel Name: William Temple Position: [facility] Associate Professional Member Role: PCP Address: Address: [address] [place] [id number] Care Team Related Persons Name: KATJA TUCKER Address: Address: home [address] [place] [address] [place] Name: RICHARD TUCKER Address: Address: home [address] [place] [address] [place] Name: EDISON TUCKER Address: home [address] [place] [id number] Name: EDISON TUCKER Address: [address] [address]
--- NOTE | 2022-09-21 07:23 | PHA.MEDREC ---
Pharmacy Consult ? Medication Reconciliation Pharmacy has reviewed the medication reconciliation completed by nursing.
[2022-09-21 07:33] LABS: UPreg QC Valid YES; Urine Pregnancy NEGATIVE (NEGATIVE)
--- NOTE | 2022-09-21 07:37 | HO.ANESPROP2 ---
HPI - Anesthesia Eval Consult details Narrative: 37 yo female patient for EGD, Revision of sleeve gastrectomy, possible diaphragmatic hernia repair, possible ventral hernia repair, possible open PMFSH Active Problems Active Problems: All Active Problems (Updated 09/16/22 @ 11:28 by Henny Alvarez, DIOGENES) Adjustment disorder, unspecified (Acute) H. pylori infection (Acute) Vitamin B1 deficiency (Acute) Pre-op evaluation (Acute) Asthma exacerbation (Acute) Fatty liver (Acute) Panniculitis (Acute) Abnormal ECG (Acute) Positive cardiac stress test (Acute) Preoperative cardiovascular examination (Acute) History of sleeve gastrectomy (Acute) Morbid obesity (Acute) BMI 45.7 Past Medical History Medical History Asthma History of in vitro fertilization Morbid obesity Patient : No Family History Family History Mother No problems noted. Father Diabetes Sister No problems noted. Sister No problems noted. Sister No problems noted. Brother No problems noted. Son No problems noted. Son No problems noted. Daughter No problems noted. Family history of problems with anesthesia: No Surgical History Surgical History History of cervical cerclage History of sleeve gastrectomy History of Problems with Anesthesia: No Social History Social History Are you a primary healthcare sales representative to a significant other at home: Yes (children 2,4,+18) Do you presently have visiting nurse or other home services: No Alcohol intake: never Patient Tobacco Use Status: Never used Tobacco Use of substances other than those prescribed or required for medical reasons: No Have you been hit, kicked, punched, or otherwise hurt by someone within the past year? If so, by whom?: No Are you DNR?: No Advance Directives: No Advance Directives Information Provided: Yes Advance Directives on File: No Recently lost weight without trying: No Patient : No FDLMP: 09/16/2022 : No Poor oral hygiene: No Meds Allergies Allergy/AdvReac Type Severity Reaction Status Date / Time Seasonal Allergies Allergy Severe Anaphylaxis Verified 09/13/22 13:39 Active Medications: Current Medications Cefazolin Sodium/Dextrose (Ancef) 2 gm in 50 mls @ 100 mls/hr IV PREOP ONE Stop: 09/21/22 07:40 Lactated Ringer's (Lr) 1,000 mls @ 999 mls/hr IV .Q1H1M PRASHANT Stop: 09/21/22 09:15 Home Medications Medication Instructions Recorded Confirmed Last Taken Type albuterol sulfate 90 mcg/actuation 2 puff inhalation Q4-6H PRN 03/22/22 09/16/22 Unknown History aerosol inhaler Shortness Of Breath Or Wheezing Exam Exam Date and Time: September 21, 2022 0737 Height,Weight and Vital Signs: Height 5 ft Weight 106.141 kg Vital Signs Temp Pulse Resp BP Pulse Ox O2 Del Method 09/21/22 07:50 97.4 F 61 16 132/79 97 Room Air Pertinent Lab Results Pertinent Lab Results: Laboratory Tests 09/14/22 09/20/22 09/21/22 07:30 12:15 07:16 Urine Test NEGATIVE COVID-19 (JANUARY) Negative COVID-19 Clin Com See Note Blood Type B Positive Antibody Screen NEGATIVE Airway Mallampati Class: III TM Dist: >3cm Neck ROM: Full Loose/Missing/Broken Teeth: No (Denies broken, loose, missing teeth) Heart: RRR Lungs: CTAB. Diminished Assessment and Plan Assessment Anesthesia Assessment: Anesthesia Plan Discussed and Chart Reviewed Final Anesthetic Review Family History of Problems with Anesthesia: No History of Problems with Anesthesia: No NPO: Yes ASA Class: III Final Preanesthetic Review: No Changes in Pt Med Stat, Meds/Allgs Chart Reviewed, Consent Obtained/Reviewed and Anes Risks/Benef Reviewed Patient Risk: Intermediate Procedure Risk: Intermediate Assessment/Block/Sedation in SS: Assess/Block/Sedation-SS Anesthetic Plan Anesthetic Plan: GA Disposition: Standard PACU and Inp. Admit - Standard Bed
--- NOTE | 2022-09-21 08:06 | PM.OP ---
Brief Operative Note Date of Service: 09/21/22 Pre-op diagnosis: Morbid obesity with comorbidities (see below) Post-op diagnosis: same Procedure: INITIAL PATIENT BMI ON PRESENTATION AT OUR OFFICE: 46.3 kg/m2 LAST BMI BEFORE SURGERY: 40.4 kg/m2 COMORBIDITIES: Asthma, liver steatosis, liver fibrosis ?The patient presented to the Weight Management Program with significant obesity that was negatively impacting the patient's comorbidities as listed above.? The program is a phased program with a special focus on preoperative medical weight management to promote substantial weight loss and prepare the patients for the second phase of the program: bariatric surgery. The patient participated in an intensive weekly lifestyle ?intervention and exercise program during which the patient ?has lost between the initial office visit and the last preoperative visit 36.3lbs, or 13.46% of initial actual body weight. It was deemed appropriate for the patient to now have bariatric surgery. In light of the current Covid-19 pandemic and the well documented strong association of obesity and increased risk of worse outcomes if infected with Covid-19 (REFERENCES:https://pubmed.ncbi.nlm.nih.gov/92635952/,?https://pubmed.ncbi.nlm.nih.gov/20654120/), any delay in undergoing bariatric surgery may lead to the patient's worsening health condition and increased?risk of more severe Covid-19 disease if infected. In addition a recent?study from [facility] published in [employer] on 06/15/2021 ([email or web address]) found that, among patients with obesity, substantial weight loss achieved with surgery was associated with improved outcomes of COVID-19 infection. The findings suggest that obesity can be a modifiable risk factor for the severity of COVID-19 infection. In addition, the patient met the BMI-criteria for bariatric surgery based on the BMI on initial presentation. The patient should not be penalized for achieving such weight loss because ?it is not sustainable long-term without surgical intervention and it was achieved in preparation for bariatric surgery ?under my direction and based on my published research ([email or web address]).pdf and?https://www.soard.org/article/[email or web address](86)85266-X/pdf) ?that a 10% preoperative weight loss improves long-term weight loss after surgery and reduces perioperative complications.? Insurance carriers such as [facility] have endorsed my recommendations ?and have included in their policies criteria to include a 10% preoperative weight loss requirement. PROCEDURE: Esophago-gastroscopy, laparoscopic repair of incarcerated diaphragmatic hernia, laparoscopic lysis of adhesions, laparoscopic sleeve gastrectomy and laparoscopic gastropexy INDICATIONS: This is a 37 year-old female who was electively scheduled for laparoscopic, possibly open sleeve gastrectomy revision. The patient has a previous sleeve gastrectomy on 04/13/2013 at [facility] with Dr. Carter. Preoperative work-up including an UGI and EGD is suggestive of a very large proximal pouch of retained gastric fundus as well as incomplete distal antral resection. The objective of this operation is to redo the sleeve. The risks and complications of the procedure were discussed with the patient in advance, particularly the possibility of ; pulmonary embolism; staple line leak; bleeding; GERD; cardiac, pulmonary, or renal complications; as well as long-term problems such as insufficient weight loss, vitamin deficiency, strictures, or ulcers. The patient understood all the risks, and was in agreement to proceed with surgery. DESCRIPTION OF PROCEDURE: After informed consent was obtained from the patient, the patient was given preoperative antibiotics, and was transferred to the operating room. After successful induction of general anesthesia, pneumatic compression devices were placed on both lower extremities. An upper endoscopy was performed next. The oropharynx and esophagus appeared to be within normal limits. There was a diaphragmatic hernia present. The stomach was entered. Then after all fluid and air were suctioned and the stomach was fully decompressed, the scope was withdrawn and secured in the mid esophagus. The patient was then prepped and draped in the usual sterile manner, and abdominal access was established at the right upper quadrant with the Alpesh technique. A 12 mm blunt port was inserted, and the abdomen was insufflated with CO2 to a pressure of 15 mmHg. Under direct visualization, additional ports were placed, specifically two 5 mm Versi-step ports to the left upper quadrant, and a 5 mm Versi-Step port to the right upper quadrant. 1% lidocaine plain was used to infiltrate all port sites as well as all fascia defects. Using the EndoClose suture passer device, I placed a #1 Polysorb tie across the falciform ligament in order to retract it up against the abdominal wall and prevent injury of the ligament with our instruments during the procedure. Following that, the patient was placed in a steep reverse Trendelenburg position. An additional 5 mm port was placed to the right flank for the Mediflex retractor that was used to retract the left lobe of the liver. The gastro-esophageal fat pad was opened with the ultrasonic device (Thhomaerbeat, Olympus) and the anterior esophagus and hiatus were exposed. The angle of His was opened with the ultrasonic device the fundus of the stomach from any diaphragmatic and splenic attachments. I then opened the gastrocolic ligament between the transverse colon and the greater curvature of the stomach with the ultrasonic device to enter the lesser sac. This was very difficult as there were dense adhesions from previous sleeve gastrectomy. The posterior gastric wall was attached to the spleen and extensive and tedious dissection was required to free the stomach. The dissection continued all the way to the angle of His until the left layton was completely dissected at its entirety. This allowed us to mobilize the stomach completely and appreciate the amount of stomach that was inappropriately left unresected at the original operation.? Adhesiolysis took approximately 120 min to complete with a total operative time of 4 hours. There was also an obvious significant-sized hiatal hernia. I continued dissecting along the hiatus toward the left layton and the angle of His. I fully mobilized the fat pad that was incarcerated in the hernia. I then continued by dissecting even further into the posterior retro-esophageal space all the way to the angle of His. There was a replaced left hepatic artery that was preserved. I continued to mobilize the esophagus into the mediastinum circumferentially. Both vagal nerves were seen and preserved. At that point, I was able to have at least 3 to 5 cm of esophagus into the abdomen.? After I completely mobilized the esophagus from both the left and right layton and I had a good mobilization of the esophagus circumferentially, I closed the hernia defect with two interrupted #0 Surgidac sutures using the Endo Stitch device, two of which were placed posterior to the esophagus. ? The stomach was then divided transversely with three Endo VICKI-45 orange loads and one VICKI-60 orange load using the AEON stapler and loads. Every effort was made that the gastric sleeve had a tubular shape and an even caliber throughout. An endoscopy was performed before the first fire to ensure that I did not narrow the gastro-esophageal junction. Once the sleeve resection was completed, the staple line of the gastric sleeve was reinforced with Hemoclips. The resected stomach was retrieved without difficulty from the Alpesh port. A gastropexy was then performed in order to prevent postoperative GERD and partial gastric volvulus. Several interrupted 2.0 Surgidac sutures were placed between the sleeve's staple line and the previously divided greater omentum and gastro-colic ligament using the Endo-Stitch device. ?An upper endoscopy was performed. There was no narrowing at the GE junction. The scope was easily advanced all the way to the pylorus which was clearly visualized. There was no narrowing anywhere and the sleeve's caliber was even throughout. The sleeve's staple line was inspected and there was no evidence of ischemia, bleeding or dehiscence. At that point the gastroscope was withdrawn from the patient?s mouth while we were decompressing the bowel and the stomach from any remaining air. I looked into the lesser sac to see how the sleeve was situating and it was situating well. There was no bleeding from the staple line, spleen, or short gastric vessels. The Mediflex retractor was removed, and the undersurface of the liver was inspected and there was no bleeding. The patient was placed in supine position. I closed the fascial defect of the 12 mm port site with a figure of eight #1 Polysorb suture. Then 30cc Ropivacaine plain with 10 mg of Dexamethasone were used to infiltrate the fascial closure as well as all skin incisions. A total of 7ml of Zynrelef was used at the Alpesh port site. At this point, the abdomen was deflated, all ports were removed under direct vision, and no bleeding was noted from any of the port sites. The skin incisions were irrigated with saline and were closed with 4-0 absorbable monofilament sutures. Steri-Strips and OpSites were used to cover all incisions. The patient was extubated and was transferred in stable condition to the recovery room for further care. I was present and performed all lei parts of the procedure. Balaji Naveed was the list of first job ideas. There were no residents to assist with this case. Maninder Dooley MD, PhD, FACS Surgeon: Alonso Dooley MD Anesthesia: GETA, local and other (TAP block and 7ml Zynrelef) Was an Abrasive Water Jet Cutter Operator used for this Procedure?: No Abrasive Water Jet Cutter Operator: Beronica Lucio Estimated blood loss (mL): 10 IV fluids (mL): 2,000 Urine output (mL): 0 (No Sifuentes to record output) Pathology: other (Stomach) Condition: stable Disposition: PACU
--- NOTE | 2022-09-21 08:10 | PM.PNGS ---
Subjective Subjective Date of Service: 09/22/22 Interval history: Feels well. Mild incisional pain. She is tolerating phase 1 bariatric diet Physical Exam Vital Signs: Vital Signs: Last Vital Signs Temp 97.4 F 09/21/22 07:50 Pulse 61 09/21/22 07:50 Resp 16 09/21/22 07:50 BP 132/79 09/21/22 07:50 Pulse Ox 97 09/21/22 07:50 O2 Del Method Room Air 09/21/22 07:50 BMI result Body Mass Index 45.7 GI: Inspection: Yes normal to inspection, Yes incision (clean, dry and intact) and Yes obesity Palpation (GI): Soft to palpation Extrem: Right lower extremity: normal to inspection (no calf tenderness) Left lower extremity: normal to inspection (no calf tenderness) Objective Data Active Medications Albuterol Sulfate (Albuterol Sulfate (0.083%) 2.5 Mg/3 Ml Vial.Neb) 2.5 mg INHALE ONCE PRN PRN Reason: Shortness of Breath/Wheezing Fentanyl (Fentanyl Citrate/Pf 100 Mcg/2 Ml Vial) 25 mcg IVPUSH Q5M PRN; Protocol PRN Reason: Pain, Moderate (Pain Scale 4-6 Hydromorphone HCl (Hydromorphone Hcl 0.5 Mg/0.5 Ml Syringe) 0.25 mg IVPUSH Q5M PRN; Protocol PRN Reason: Pain, Severe (Pain Scale 7-10) Lactated Ringer's (Lr) 1,000 mls @ 999 mls/hr IV .Q1H1M [facility] Stop: 09/21/22 09:15 Lactated Ringer's (Lr) 1,000 mls @ 100 mls/hr IVCONT .Q10H [facility] Acetaminophen (Ofirmev) 1,000 mg in 100 mls @ 400 mls/hr IV PREOP ONE Stop: 09/21/22 08:13 Promethazine HCl 6.25 mg/ (Sodium Chloride) 50.25 mls @ 201 mls/hr IV ONCE PRN PRN Reason: Nausea and Vomiting Ondansetron HCl (Ondansetron Hcl 4 Mg/2 Ml Vial) 4 mg IVPUSH ONCE PRN PRN Reason: Nausea and Vomiting Labs 09/21/22 12:21 09/21/22 12:21 Labs: Laboratory Results - last 24 hr 09/20/22 09/21/22 12:15 07:16 Urine Test NEGATIVE COVID-19 (JANUARY) Negative COVID-19 Clin Com See Note Procedures Date of Service Date of Service: 09/22/22 Progress Note: A&P Assessment and plan (1) Morbid obesity: Status: Acute Assessment and Plan: s/p laparoscopic sleeve gastrectomy, lysis of adhesions, diaphragmatic hernia repair and gastropexy Doing well Will check am labs and if OK the patient will be discharged home (2) History of sleeve gastrectomy: Status: Acute (3) Fatty liver: Status: Acute (4) Asthma: Status: Acute (5) Liver fibrosis: Status: Acute (6) S/P repair of paraesophageal hernia: Status: Acute (7) S/P laparoscopic sleeve gastrectomy: Status: Acute (8) Panniculitis: Status: Acute (9) Intra-abdominal adhesions: Status: Acute Time Spent With Patient Time: Total time managing care of this patient today ____ minutes. Quality Stroke Does the patient have a stroke diagnosis?: No VTE Prior VTE?: No VTE Risk Level:: Surgical - moderate VTE Device Contraindication: N/A - Device Ordered VTE Drug Contraindication: Treatment Not Indicated
[2022-09-21] MEDS: Lactated Ringers 1,000 ML 100 ML IVCONT ×3 (08:16→21:09)
[2022-09-21] MEDS: Lactated Ringers 1,000 ML 999 ML IV (08:16)
--- NOTE | 2022-09-21 12:00 | P.DS_ITS ---
DS: Providers Provider Date of Service: 09/22/22 Date of admission: 09/21/22 07:15 Primary care physician: NAGI Banks DS: Diagnosis Discharge Diagnosis (1) Morbid obesity: Status: Acute (2) History of sleeve gastrectomy: Status: Acute (3) Fatty liver: Status: Acute (4) Asthma: Status: Acute (5) Liver fibrosis: Status: Acute DS: Summary Hospital Course Hospital Course: ADMITTING DIAGNOSIS: morbid obesity, s/p sleeve gastrectomy, panniculitis DISCHARGE DIAGNOSIS: same, s/p laparoscopic sleeve gastrectomy and repair diaphragmatic hernia PAST SURGICAL HISTORY: sleeve gastrectomy PROCEDURE: upper endoscopy, laparoscopic sleeve gastrectomy and repair of diaphragmatic hernia hernia DISCHARGE SUMMARY: History of Present Illness: The patient is a 37 year-old woman with a BMI of 46.3 kg/m2 and associated co- morbidities as described above. The patient had extensive work-up, lost 36.3 lbs preoperatively and was electively scheduled for laparoscopic, possible open sleeve gastrectomy and gastropexy. Risks and complications of the surgery were discussed with the patient in advance, particularly the possibility of , pulmonary embolism, anastomotic leak, bleeding, bowel injury, GERD, cardiac, renal or pulmonary complications. The patient understood all the risks and was in agreement with the surgical plan. Hospital Course: The patient underwent an uneventful laparoscopic sleeve gastrectomy with gastropexy and repair of diaphragmatic hernia on the day of admission. Postoperatively, the patient was transferred to the surgical floor. The patient received IV Acetaminophen and IV dilaudid for pain control. Patient was started on bariatric phase 1 diet POD #0. On postoperative day one, the patient was feeling well without nausea, vomiting, fevers, or tachycardia. The patient had some mild incisional pain and the abdomen was soft. On the morning of postoperative day one, the patient was continued on 1 ounce of water or ice every half hour. During the day, the patient did fairly well, having some incisional pain, but able to ambulate adequately and to tolerate liquids well. Since the patient is doing well, we decided that the patient was ready to be discharged. The patient was given instructions to follow-up with me next week and to call my office for any fever over 101, persistent abdominal pain, nausea, vomiting, GERD, symptoms of DVT such as calf tenderness, or leg swelling, or pulmonary embolism such as chest pain or shortness of breath. The patient was also instructed to drink 40-60 ounces of liquids per day using the 1-ounce cups. The patient had been given prescriptions for Tylenol for pain, Zofran prn for nausea, and pantoprazole and carafate previously. The patient was encouraged to ambulate and use the incentive spirometer. The patient was allowed to shower, but no baths, and encouraged to stay active at home. All of these instructions were given to the patient personally. All questions were answered and the patient understood all instructions, the instructions were also given to the patient in print. Time Spent with Patient Time attestation: Total time managing care of this patient today ____ minutes. Discharge coordination time: Less than 30 minutes Quality: Safe Use of Opioids Does Pt have an Active Cancer Diagnosis on the Problem List?: No Quality: Stroke Does the patient have a stroke diagnosis?: No Physical Exam Vital Signs: Vital Signs: Last Vital Signs Temp 97.4 F 09/21/22 07:50 Pulse 61 09/21/22 07:50 Resp 16 09/21/22 07:50 BP 132/79 09/21/22 07:50 Pulse Ox 97 09/21/22 07:50 O2 Del Method Room Air 09/21/22 07:50 BMI result Body Mass Index 45.7 DS: Data Data Completed and Pending Pending studies at discharge: Pending at discharge 09/21/22 11:06 Surgical [PTH] Routine Labs on day of discharge: Laboratory Results - last 24 hr 09/20/22 09/21/22 12:15 07:16 Urine Test NEGATIVE COVID-19 (JANUARY) Negative COVID-19 Clin Com See Note Discharge Plan Discharge Anticipated Discharge Date/Time: 09/22/22 10:57 Patient Disposition: Home, Self-Care Discharge Diagnosis: s/p sleeve gastrectomy and para esophageal hernia repair Referrals: William Dolan PA [Primary Care Provider] - 1 Week Discharge Medications: Continued albuterol sulfate 90 mcg/actuation HFA aerosol inhaler 2 puff inhalation Q4-6H PRN (Reason: Shortness Of Breath Or Wheezing) clotrimazole 1 % cream 1 appl topical BID Qty: 90 3RF pantoprazole 40 mg tablet,delayed release (DR/EC) 40 mg PO DAILY Qty: 30 2RF sucralfate 100 mg/mL suspension 10 ml PO BID Qty: 400 2RF ondansetron HCl 4 mg tablet 4 mg PO Q12H Qty: 20 0RF Rx Instructions: Only take one every 12 hours as needed if you have nausea Discontinued cholecalciferol (vitamin D3) 25 mcg (1,000 unit) capsule 25 mcg PO DAILY Qty: 30 5RF Discharge Orders: Discharge Order (Routine); Ordered 09/22/22 Ordered By: Alonso Dooley Activity on Discharge: No heavy lifting Stand Alone Forms: Patient Portal Discharge page Care Plan Goals: weight loss Health Concerns: morbid obesity Plan of Treatment: No tub baths, sex or returning to work until discussed at first post op appointment. No exercise, alcohol, tobacco or illegal drug use. Continue to use incentive spirometer hourly while awake. Walk in home for 5- 10 minutes every 2 hours during the first week. Continue phase 1 diet today and start phase 2 diet tomorrow morning. Follow all instructions in the bariatric handbook and call with any questions. 1. Please call your doctor or come back to the emergency room should any new symptoms arise. 2. You will receive a courtesy call from [facility] 24-48 hours after discharge. 3. Activity: abstain from alcohol, practice limited stair climbing, no bending, no driving, no exercise, no illicit substances, no lifting, no sex, no tub bath, no work. 4. Diet: continue as discussed with bariatric team.. 5. Dressing Change/Wound Care: Do not change or remove surgical dressings unless they are wet or soiled. 6. Call your doctor if: - Your temperature exceeds 101.5 F - You experience excessive pain or swelling - You have an unexpected reaction to medication - You have excessive bleeding - You experience continued vomiting/nausea - Your incision begins to separate - Your incision shows signs of infection such as increased redness, swelling, excessive pain, heat, or drainage (light blood or clear fluid is normal) 7. General instructions: No lifting greater than 5 lbs for the next 4 weeks[address] within 24 hours of taking narcotic pain medications. If you do not move your bowels in the next 2 days, please take milk of magnesia over the counter. Please follow the post op diet and do not advance your diet until you are seen in the office in about 2 weeks. Please walk around your home every hour or two to prevent blood clots from forming in your legs. You do not need to wake from sleeping to walk. Please sleep in a bed or couch to prevent kinking at the hips and knees. Please take your incentive spirometer (your lung primary substance abuse counselor) home with you and use it for the next few days to prevent pneumonias. You may shower, no hot tubs, baths or swimming pools. Please call the office with any questions or concerns such as increasing abdominal pain, fever, chills, shortness of breath, chest pain, leg pain or swelling, or redness or drainage from your incisions. Do not hesitate to contact the office with any questions at . The patient's medical history has been reviewed and they are considered low risk for post op DVT and therefore DVT prophylaxis is not considered necessary. Travel after surgery was reviewed. The patient has not disclosed any travel plans during the first 30 days after surgery and they have been advised that within the first 30 days after surgery any bus, plane, train or car travel over 2 hours in duration is contraindicated due to the possibility of developing blood clots from immobility. Any travel, needs to include periods of ambulation of 10 minutes in duration every 2 hours. The patient was instructed to discuss any plans for travel during this period with their bariatric surgeon. Assessment: stable post op sleeve gastrectomy Discharge Date/Time: 09/22/22 09:37
[2022-09-21 12:29] LABS: Hematocrit 40.9 % (37.0-47.0)
[2022-09-21 12:39] LABS: Anion Gap 13 (12-20); Blood Urea Nitrogen 19 mg/dL (9-16); Calcium 8.6 mg/dL (8.4-10.2); Carbon Dioxide 20 mmol/L (22-29); Chloride 109 mmol/L (96-108); Creatinine Clr Calc Pharmacy 99.8; Estimated Glomerular Filt Rate > 60; Glucose Random 122 mg/dL (60-115); Potassium 4.6 mmol/L (3.3-5.1); Sodium 137 mmol/L (135-145)
[2022-09-21] MEDS: Famotidine/PF 20 MG/2 ML VIAL IVPUSH ×2 (13:05→20:05)
[2022-09-21] MEDS: ondansetron HCL 4 MG/2 ML VIAL IVPUSH ×2 (13:05→20:05)
[2022-09-21] MEDS: ceFAZolin Sodium/Dextrose,Iso 2 GM/50 ML PIGGYBACK IV (14:09)
[2022-09-21] MEDS: Acetaminophen 1,000 MG/100 ML PIGGYBACK 16.7 MG IV ×2 (14:54→19:22)
[2022-09-21] MEDS: 0.9 % Sodium Chloride Flush 3 ML SYRINGE IVFLUSH (20:05)
[2022-09-22] MEDS: Acetaminophen 1,000 MG/100 ML PIGGYBACK 16.7 MG IV ×2 (01:02→06:19)
[2022-09-22 03:20] VITALS: BP 132/65; PULSE 99; RESP 18; TEMP 36.3; O2SAT 93
[2022-09-22] MEDS: ondansetron HCL 4 MG/2 ML VIAL IVPUSH (04:10)
[2022-09-22] MEDS: Lactated Ringers 1,000 ML 100 ML IVCONT (06:19)
[2022-09-22 06:27] LABS: MANUAL DIFF FLAG NO
[2022-09-22 06:34] LABS: Basophils Percent Auto 0.1 % (0-2); Eosinophils Percent Auto 0.1 % (0-4); Hemoglobin 12.3 g/dl (12.0-16.0); Imm Gran Abs Auto 0.05 X10*3/uL (0.00-0.03); Imm Gran Pct Auto 0.6 % (0.0-0.4); Lymphocytes Absolute Auto 1.1 X10*3/uL (1.2-4.9); Lymphocytes Percent Auto 12.7 % (20-40); Mean Corpuscular HGB Conc 32.4 g/dl (31.0-35.0); Mean Corpuscular Hemoglobin 26.5 pg (27.0-33.0); Mean Corpuscular Volume 81.9 fL (80.0-98.0); Mean Platelet Volume 12.6 fL (9.4-12.3); Monocytes Absolute Auto 0.6 X10*3/uL (0.1-1.2); Monocytes Percent Auto 6.5 % (2-11); Platelet Count 214 X10*3/uL (160-400); Red Blood Count 4.64 X10*6/uL (4.20-5.50); Red Cell Distribution Width 13.6 % (11.0-16.0); White Blood Count 8.8 X10*3/uL (4.8-10.8)
[2022-09-22 07:03] LABS: Anion Gap 11 (12-20); Blood Urea Nitrogen 12 mg/dL (9-16); Calcium 8.7 mg/dL (8.4-10.2); Carbon Dioxide 25 mmol/L (22-29); Chloride 107 mmol/L (96-108); Creatinine Clr Calc Pharmacy 110.1; Estimated Glomerular Filt Rate > 60; Glucose Random 99 mg/dL (60-115); Potassium 4.4 mmol/L (3.3-5.1); Sodium 139 mmol/L (135-145)
[2022-09-22] MEDS: Famotidine/PF 20 MG/2 ML VIAL IVPUSH (07:12)
[2022-09-22 07:24] VITALS: BP 125/67; PULSE 72; RESP 18; TEMP 36.3; O2SAT 98
--- NOTE | 2022-09-22 08:55 | MHC.CM.PN ---
PATIENT IS FULLY INDEPENDENT NO DME OR [facility] SERVICES PLAN IS HOME TODAY - SELF CARE. TRANSPORTATION PREVIOUSLY ARRANGED. RN AWARE OF PLAN.
--- NOTE | 2022-09-22 14:10 | HO.POSTANES ---
Post Anesthesia Evaluation Post Anesthesia Evaluation Vital Signs: Vital Signs Temp Pulse Resp BP Pulse Ox O2 Del Method 09/22/22 07:24 97.3 F 72 18 125/67 98 Room Air 09/22/22 06:51 Room Air 09/22/22 03:20 97.4 F 99 18 132/65 93 Room Air Anesthesia: General Endotracheal-GETA Mental Status: Awake Pain Control: Satisfactory Nausea/Vomiting: None Hydration: Adequate Anesthesia-Related Issues: No Anes. Related Issues
== END 2022-09-22 09:37 | disposition home or self-care (01) | DRG 403 ==
LOC: HO.SSSA 07:16 → HO.S3 11:48
PROVIDERS: Anesthesiology; Physician Assistant; Physician Assistant Surgical; Admitting Provider Surgery; PCP Physician Assistant Medical; Visit Provider Surgery
PROC: 0DB64Z3 Excision of Stomach, Percutaneous Endoscopic Approach, Vertical (ICD-10-PCS; principal; 2022-09-21 09:10)
DX: E66.01 Morbid (severe) obesity due to excess calories (principal); K44.0 Diaphragmatic hernia with obstruction, without gangrene; K74.00 Hepatic fibrosis, unspecified; K76.0 Fatty (change of) liver, not elsewhere classified; J45.909 Unspecified asthma, uncomplicated; K66.0 Peritoneal adhesions (postprocedural) (postinfection); Z20.822 Contact with and (suspected) exposure to COVID-19; Z98.84 Bariatric surgery status; Z79.899 Other long term (current) drug therapy
CPT/HCPCS: 36415; 80048; 81025; 85014; 85018; 85025; 86850; 86900; 86901; 87635; 88307; 88342; A4649; C9088; J0131; J0690; J1100; J1170; J2250; J2405; J2795; J3010

== ENCOUNTER → 2022-09-28 10:32 | Outpatient (BNVA) | payer OTHER, SELFPAY | PROVIDERS: PCP Physician Assistant Medical; Visit Provider Physician Assistant Surgical | DX: Z13.89 Encounter for screening for other disorder (principal) ==

== ENCOUNTER → 2022-10-13 09:55 | Outpatient (BNVA) | payer OTHER, SELFPAY | PROVIDERS: PCP Physician Assistant Medical; Visit Provider Physician Assistant | DX: Z13.89 Encounter for screening for other disorder (principal) ==

== ENCOUNTER → 2022-10-25 13:25 | Outpatient (BNVA) | payer OTHER, SELFPAY | PROVIDERS: PCP Physician Assistant Medical; Visit Provider Physician Assistant ==

== ENCOUNTER → 2022-11-24 10:55 | Outpatient (BNVA) | payer OTHER, SELFPAY | PROVIDERS: PCP Physician Assistant Medical; Visit Provider Physician Assistant ==